=== PATIENT | male | born 1955 | race Caucasian/White ===

== ENCOUNTER 2021-06-14 13:56 | Inpatient (IN) | payer MEDICARE ==
[~2021-06-14] VITALS: Ht 198.1 cm; Wt 127.9 kg
[2021-06-14] MEDS ORDERED: ACIDOPHILUS1 EACH PO (15:10)
[2021-06-14] MEDS ORDERED: CYANOCOBAL1000 MCG/M IM (15:11)
[2021-06-14] MEDS ORDERED: D3-501250 MCG PO (15:11)
[2021-06-14] MEDS ORDERED: AMLODIPINE-OLM1 EAC1 PO (15:11)
[2021-06-14] MEDS ORDERED: DONEPEZIL HCL5 M1 PO (15:12)
[2021-06-14] MEDS ORDERED: EFFEXOR XR150 MG PO (15:12)
[2021-06-14] MEDS ORDERED: PROSCAR5 MG PO (15:12)
[2021-06-14] MEDS ORDERED: LEVOTHYROXINE125 MC1 PO (15:13)
[2021-06-14] MEDS ORDERED: NORTRIPTYLINE H25 MG PO (15:13)
[2021-06-14] MEDS ORDERED: FLOMAX0.4 MG PO (15:13)
[2021-06-14] MEDS ORDERED: HYDROCHLOROTH12.5 M1 PO (15:13)
[2021-06-14] MEDS ORDERED: PREDNISONE20 MG PO (15:13)
[2021-06-14] MEDS ORDERED: SPIRIVA18 MCG INH (15:14)
[2021-06-14] MEDS ORDERED: SIMETHICONE80 MG PO (15:14)
[2021-06-14] MEDS ORDERED: ELIQUIS5 MG PO (15:14)
[2021-06-14] MEDS ORDERED: SYMBICORT 16010.2 GM INH (15:14)
[2021-06-14] MEDS ORDERED: DEPAKOTE125 MG PO (15:14)
[2021-06-14] MEDS ORDERED: K-TAB ER20 MEQ PO (15:14)
[2021-06-14] MEDS ORDERED: LYRICA50 MG PO (15:14)
[2021-06-14] MEDS ORDERED: VENTOLIN HFA18 GM INH (15:15)
[2021-06-14] MEDS ORDERED: PAIN RELIEF650 MG PO (15:15)
[2021-06-14] MEDS ORDERED: POLYETHYLENE GL17 GM PO (15:16)
[2021-06-14] MEDS ORDERED: DULCOLAX STOOL100 M1 PO (15:16)
[2021-06-14] MEDS ORDERED: FLEET ENEMA133 ML PR (15:16)
[2021-06-14] MEDS ORDERED: MILK OF MA400 MG/5 M PO (15:16)
[2021-06-14] MEDS ORDERED: ULTRAM50 MG PO (15:17)
[2021-06-14] MEDS ORDERED: GAS RELIEF80 MG PO (15:17)
--- NOTE | 2021-06-14 20:37 | NUR ---
PATIENT ARRIVED TO THE FLOOR VIA STRETCHER. PATIENT TRANSFERED FROM STRETCHER TO HOSPITAL BED BY STAFF. PATIENT ALON SAMANTA MAURO LWROMEO. PRESNET IN THE ROOM AND ASSISTED IN PATIENTS HEALTH HISTORY. PATIENT HAS IV INFUSING PER ORDER. ALL QUESTIONS ANSWERED. RT IN THE ROOM.
--- NOTE | 2021-06-14 21:15 | NUR ---
RIGHT NARE NGT TO ILCS. DRAINING BROWN COLORED DRAINAGE. HOB ELEVATED. NPO. CHRONIC O2 2L NC AT HOME. LUNGS RGHT SIDE FAINT CRACKLES AUSCULTATED. ABD LARGE TENDER, DISTENDED. F/C CHRONIC PATENT, DRAINING LIGHT RENATO COLORED URINE. IV RAC INFUSING W/O PROBLEMS, HEEL PROTECTORS IN PLACE. ALL PROCEDURES EXPLAINED TO PT AND . PT COOP.
--- NOTE | 2021-06-14 22:28 | NUR ---
soap sads enema given with pt laying on his left side. Able to inert approx 100cc. tub plugged with hard bm. second enema bucket. able to insert about 100cc soapy suds water enema more and large amount of rectal gas came out. tip of enema tubing plugged with hard bm again, unable to dislodge. Had medium amount of liquid bm. Abd large distended, no changes noted. procedure explained, pt cooperative. NGT patent. noted to have very stiff legs. f/c patent. inroom
--- NOTE | 2021-06-15 00:06 | NUR ---
AWAKES EASILY, ngt TO liws DRAINING SMALL AMOUNT OF BROWN, THICK DRAINAGE. COOPERATIVE, PROCEDURE EXPLAINED, ATTENDS DRY, NO FURTHER BM, F/C PATENT, DRAINING LIGHT RENATO COLORED URINE, REPOSITIONED IN BED. HEEL PROTECTORS IN PLACE NPO, MOUTH CARE DONE
--- NOTE | 2021-06-15 02:16 | NUR ---
RESTING, NO DISTRESS. NGT PATENT, O2 2L CHRONIC, ABD DISTENDED. FIRM, F/C PATENT DRAINING LIGHT RENATO COLORED URINE, HEEL PROTECTORS INPLACE
--- NOTE | 2021-06-15 03:01 | NUR ---
ATTENDS DRY, NO BM, TURNED TOWARDS LEFT SIDE, HOB ELEVCATED, NGT PATENT TO ILWS, SMALL AMOUNT OF BROWN DRAINAGE. ABD LESS DISTENDED, STILL FIRM AND TENDER, FAINT GOLDIE. F/C PATENT. HEEL PROTECTORS IN PLACE, IVF INFUSING. MOUTH CARE DONE, FAMILY IN ROOM
[2021-06-15] MEDS ORDERED: VITAMIN D325 MCG PO (08:55)
[2021-06-15] MEDS ORDERED: B-121000 MC2 PO (08:56)
[2021-06-15] MEDS ORDERED: HYDROCHLOROTH12.5 MG PO (09:09)
[2021-06-15] MEDS ORDERED: SYNTHROID125 MCG PO (09:11)
--- NOTE | 2021-06-15 09:15 | NUR ---
IN TO ROOM TO SPEAK WITH PATIENT AND HIS ANDI. PATIENT ABLE TO PROVIDE INFORMATION FOR CASE MANAGEMENT ASSESSMENT. ANDI STATES THAT PATIENT HAD PREVIOUSLY BEEN PLACED AT [facility], BUT STATES SHE FEELS THAT THEIR CARE WAS QUESTIONABLE. AT THIS TIME PATIENT RESIDES AT [facility] FOR PT. ANDI STATES THAT SHE HAS BEEN ATTEMPTING TO CONTACT [facility] REGARDING PATIENTS CARE PLAN, BUT HAS NOT RECVD A CALL BACK. I ADVISED THE PATIENT AND HIS THAT I WILL ATTEMPT TO CONTACT T TO OBTAIN THE PATIENT CURRENT PLAN OF CARE. DISCUSSED WITH ANDI IF SHE WOULD LIKE PATIENT TO RETURN TO [facility] OR POSSIBLY DISCHARGE TO A DIFFERENT FACILITY. PATIENTS STATES THAT SHE WOULD CONSIDER PATIENT RETURNING TO [facility] IT IS LOCATED CLOSER TO HER. I ADVISED PATIENT AND HIS THAT I WOULD CONTACT [facility] TO ATTEMPT TO GATHER INFORMATION REGARDING HIS CARE PLAN. DR. MARTINEZ INTO ROOM, PATIENT TO GO FOR COLONOSCOPY LATER THIS AFTERNOON. WILL CONTINUE WORKING ON DISCHARGE PLAN FURTHER INFORMATION REGARDING THE PATIENT IS AVAILABLE.
[2021-06-15] MEDS ORDERED: SPIRIVA RESPIMAT4 GM INH (09:17)
[2021-06-15] MEDS ORDERED: SYMBICORT 16010.2 GM INH (09:20)
--- NOTE | 2021-06-15 09:23 | NUR ---
IN ROOM FOR MEDICATIONS AND DR ALFONSO IN TO EVALUATE. ABD XRAY COMPLETED. PT TEARFUL AND DOESN'T RECALL WHERE HE IS. GIVEN OFIRMEV FOR THROAT PAIN.
[2021-06-15] MEDS ORDERED: PAIN RELIEF325 MG PO (09:27)
[2021-06-15] MEDS ORDERED: DULCOLAX10 MG PR (09:30)
[2021-06-15] MEDS ORDERED: FLEET ENEMA133 ML PR (09:31)
[2021-06-15] MEDS ORDERED: MILK OF MA400 MG/5 M PO (09:32)
[2021-06-15] MEDS ORDERED: CLEARLAX119 GM PO (09:34)
--- NOTE | 2021-06-15 09:39 | NUR ---
MED REC COMPLETED USING MAR FROM [facility] BY PHARMACY
--- NOTE | 2021-06-15 10:52 | NUR ---
SPOKE WITH BERHANE AT [facility] REGARDING PATIENTS CURRENT CARE PLAN. BERHANE TO FAX OF PATIENT CARE PLAN. UPDATES GIVEN.
--- NOTE | 2021-06-15 12:11 | NUR ---
Patient's vitals are complete. Patient's is in room.
--- NOTE | 2021-06-15 12:50 | NUR ---
CHANGED OUT PICKETT CATHETER. PT TOLERATED WELL. EDUCATED ON KEEPING IT CLEAN ALTHOUGH HE HAS VERY SHORT TERM MEMORY. WILL SPEAK WITH WHEN SHE RETURNS. WAITING FOR ENOUGH URINE TO SEND FOR NEW SAMPLE. PT DENIES CONCERNS.
--- NOTE | 2021-06-15 14:45 | NUR ---
Patient said the plastic nose piece is irritating to the nose.
--- NOTE | 2021-06-15 15:49 | NUR ---
LIDIA FOR PATIENT RECORDS SIGNED BY PATIENT AND SENT TO [facility] PER FACILITIES REQUEST. WILL GIVE PLAN OF CARE TO PATIENT ANDI WHEN RECVD.
--- NOTE | 2021-06-15 17:32 | NUR ---
ADMINISTERED OFIRMEV FOR THROAT PAIN AND MILD HEARTBURN. BOWEL TONES ARE HYPO TO INACTIVE. LUNGS CLEAR. HR REGULAR. APPEARS MORE DISTENDED BUT PT STATES HE FEELS OK. IN ROOM.
--- NOTE | 2021-06-15 18:03 | NUR ---
PT OFF FLOOR WITH RNS PATIENCE AND MARIA R FOR DECOMPRESSION OF COLON. NG UNHOOKED.
--- NOTE | 2021-06-15 18:59 | NUR ---
06/15/[id number] Sadie Morton 185: PT ARRIVES TO PACU VIA STRETCHER FROM OR. OPA IN PLACE. NON AROUSABLE TO VERBAL OR TACTILE STIM. VSS, RESP EVEN AND UNLABORED. O2 SAT STABLE >98% ON 10L VIA FACEMASK. NO INFILTRATION NOTED TO IV AT THIS TIME
--- NOTE | 2021-06-15 19:26 | NUR ---
RECEIVED REPORT FROM DAY SHIFT RN. PATIENT IS OFF THE FLOOR AT THIS TIME. PRESENT IN ROOM. NO NEEDS NOTED.
--- NOTE | 2021-06-15 19:58 | NUR ---
PATIENT ARRIVED TO THE FLOOR VIA STRETCHER. PATIENT MOVED FROM STRETCHER TO THE BED BY STAFF. NG TO LWIS. IV INFUSING PER ORDER. PATIENT DENIES ANY PAIN. JUAN IN TO SEE PATIENTS . PATIENTS VITALS TAKEN AND RECORDED. PATIENT DENIES ANY NEEDS. CALL LIGHT IN REACH. REMAINS AT BEDISDE.
--- NOTE | 2021-06-15 21:01 | NUR ---
PATIENT ASSESMENT COMPLETED. PATIENTS VITALS TAKEN AND RECORDED. PATIENTS PICKETT EMPTIED AND PICKETT CARE COMPLETED. INTAKE AND OUTPUT COMPLETED. ORAL CARE COMPLETED. PATIENT DENIES ANY PAIN. NG TO LWIS. PATIENTS PRESENT IN THE ROOM. SCHEDULED MEDICATION GIVEN PER ORDER. PATIENT AND DENY ANY NEEDS. CALL LIGHT IN REACH.
--- NOTE | 2021-06-15 22:02 | NUR ---
PATIENTS POST-OP VITALS TAKEN AND RECORDED. PATIENT DENIES ANY NEEDS. CALL LIGHT IN REACH. ASLEEP ON THE COUCH.
--- NOTE | 2021-06-15 23:25 | NUR ---
LAST POST OP VITALS COMPLETED. PATIENT REPOSITIONED IN BED. NG TO LWIS. 2L VIA NC. IV INFUSING PER ORDER. PATIENT DENIES ANY NEEDS. CALL LIGHT IN REACH.
--- NOTE | 2021-06-16 | NUR ---
PATIENT IS RESTING IN BED. NG FOUND TO DISPLACED. NG REPLACED, STOMACH CONTENTS NOTED IN TUBE. NG BACK TO LWIS. PATIENT TOLERATED ACTIVITY WELL. REPOSITIONED PATIENT. PATIENT DENIES ANY NEEDS. CALL LIGHT IN REACH.
--- NOTE | 2021-06-16 03:03 | NUR ---
PATIENT REPOSITIONED. PATIENT NG LWIS. NEW IV STARTED AND IV INFUSING PER ORDER. PATIENT DENIES ANY NEEDS. CALL LIGHT IN REACH.
--- NOTE | 2021-06-16 04:20 | NUR ---
PATIENT IS RESTING IN BED. PATIENT REPOSITIONED. PATIENTS NG TO LWIS. IV INFUSING PER ORDER. PATIENT DENIES ANY PAIN. NO NEEDS NOTED. CALL LIGHT IN REACH.
--- NOTE | 2021-06-16 05:37 | NUR ---
PATIENTS SCHEDULED MEDICATIONS GIVEN PER ORDER. PATIENT REPOSITIONED IN BED. PATIENT HAS NG TO LWIS. IV INFUSING PER ORDER. PATIENT DENIES ANY PAIN. PATIENT REMAINS ON 2L VIA NC. PATIENTS PICKETT EMPTIED. VITALS TAKEN AND RECORDED. INTAKE AND OUTPUT RECORDED. NO NEEDS NOTED. ASLEEP ON COUCH. CALL LIGHT IN REACH.
--- NOTE | 2021-06-16 06:54 | NUR ---
PATIENT IS RESTING IN BED WITH EYES CLOSED, RR 16. NG TO LWIS. IV INFUSING PER ORDER. ASLEEP ON THE COUCH. CALL LIGHT IN REACH.
--- NOTE | 2021-06-16 09:17 | NUR ---
Tylenol 1000mg ivp admin for reports of generalized discomfort. requesting patient have tylenol at this time.
--- NOTE | 2021-06-16 09:25 | NUR ---
Verbal order obtained from Dr. Griffin to remove NG and advance patient's diet to clears. NG removed at this time, pt tolerated well. Jello and water provided.
--- NOTE | 2021-06-16 10:30 | NUR ---
Lengthy converstation with pts Cristal. would like pt moved to [facility] on discharge. She further states pt has run out of SNF days and they are attempting to get [place] Medicaid and [facility] is assisting her. Pt was in [facility] and they were not happy with their care, she moved pt to [facility]. She is not that happy with [facility]. We discussed pt needs to return to [facility] on discharge and they can assist her with a return to [facility]. She is concerned as the roads are getting slick and is not sure how she will visit to [place] from [facility]. I also cautioned her to speak with [facility] to confirm if he is transfered she won't have to restart the process for medicaid. I let her know this is a 45 day process and she was not aware of this. I gave her Zahida Navarro phone number at [facility] and asked her to call her with questions. She states she has called [facility] and they have not returned her calls as well as [facility]. I reminded her this is a holiday week and she may not receive calls until next week. Pt was listed from admitting as no pcp, but pts pcp is Vicki Burnette at [facility] [phone]. I also discussed with Cristal a concern from our 829 meeting where it was stated the POLST was filled out by the daughter with the patient and the was not in agreement. Cristal states she was not happy with this as pt was made a DNR/DNI. The daughter is not Cristal's daughter and is Ugo's daughter. The POLST was completed with the patients wishes and she states he has stated several times he wants to be DNR so it was left as signed by the patient. would like to complete FMLA papers and gave her our fax number for her work to fax to us. She asked if we could return fax and I let her know I would be happy to fax for her.
--- NOTE | 2021-06-16 12:32 | NUR ---
Received a call from pts PCP and she is requesting progress notes. H&P and progress notes sent to fax.
--- NOTE | 2021-06-16 12:54 | NUR ---
Patient resting in bed, no distress. Patient is on room air, respirations even and non labored. Patient denies nausea at this time. IV site patent. Hob elevated. Patient has no current needs.
--- NOTE | 2021-06-16 13:40 | NUR ---
RT IN CARING FOR PT. WILL CHECK BACK AGAIN LATER
--- NOTE | 2021-06-16 14:37 | NUR ---
Received call from Cristal. She has spoken with Oswaldo from [place] and he told her to go ahead and have us move pt to [facility]. Discussed with Oswaldo cannot just tell us to do this. [facility] would need to have a bed and also be willing to accept him. She asks if I can call and see if there is a bed. I said I would, but pt will need to return to [place] as his 20 days have been exhausted and I doubt very much [facility] will accept him. Called and spoke with Meka at [facility]. She states pt needs to return to [facility] and can call them after he has returned to [place]. was not happy with their care and this would need to be discussed as well as Medicare 20 days has been completed.
--- NOTE | 2021-06-16 15:02 | NUR ---
Patient resting in bed visiting with . Patient denies pain and nausea. Patient declined to get up in chair at this time. Encouraged patient to call staff if he has needs.
--- NOTE | 2021-06-16 15:25 | NUR ---
Received call from Sonal at [facility]. She states called and spoke with their [place] Treater and they would like to send him to [facility]. Informed this will not work as [facility] is not willing to accept this pt. He will need to return to [place] on discharge and they can assist him to discharge whereever the family would like.
--- NOTE | 2021-06-16 15:45 | NUR ---
Approached by pts RN and she asks if I am aware plans on pt going to [facility]. Updated pt must return to [facility] as this is a safe discharge plan and [facility] is not accepting this patients. He does not have a bed in [facility].
--- NOTE | 2021-06-16 16:03 | NUR ---
PT HAS AN "UPSET STOMACH" CAROLYN CARRERA NOTIFIED. THIS [employer]ET[employer] SPECIALIST AND CAROLYN CHEUNGWNA IN TO OFFER BED BATH AND LINEN CHANGE WELL BED ALVARADO. PT REFUSED ALL CARE. CALL LIGHT WITHIN REACH. NO FURTHER NEEDS AT THIS TIME.
--- NOTE | 2021-06-16 16:11 | NUR ---
Patient resting in bed visiting with . Patient reports his stomach has been cramping intermittently today. Education provided regarding medications in use to premote bowel motility. Patient declining need to have a bowel movement as of yet this shift. Warm pack provided to patient to place over his lower abdomen per his request. Discussed plan of care and medication scheduling with patient and . Patient and receptive to plan of care. Patient declined a bed bath. Patient has poor po intake today, he reports he does not like the jello, popsickles or the broth here. has brought in chicken noodle soup to bedside in which she would like strained, as pt desires. Encouraged patient and to call if there are any needs. Call light withn reach.
--- NOTE | 2021-06-16 18:18 | NUR ---
PATIENT REPOSITIONED IN BED WITH PILLOWS UNDER RIGHT SIDE. IN ROOM. VITALS AND I&O'S CHARTED. CALL LIGHT IN REACH. NO FURTHER NEEDS AT THIS TIME.
--- NOTE | 2021-06-16 18:25 | NUR ---
Patient repositioned to left lateral side with pillows. Patient reports his stomach is feeling better. clear liquid soup provided to patient. remains at bedside. No current needs. Personal supplies and call light within reach.
--- NOTE | 2021-06-16 19:26 | NUR ---
RECEIVED REPORT FROM DAY SHIFT RN. PATIENT IS RESTING IN BED. PATENTS AT THE BEDSIDE. THEY DENY ANY NEEDS. CALL LIGHT IN REACH.
--- NOTE | 2021-06-16 20:55 | NUR ---
PATIENT ASSESMENT COMPLETED. VITALS TAKEN AND RECORDED PICKETT EMPTIED AND PICKETT CARE COMPLETED. PATIENT REPOSITIONED IN BED. PATIENT DENIES ANY PAIN OR NAUSEA. SCHEDULED MEDICATIONS GIVEN PER ORDER. SIPS OF WATER PROVIDED. IF INFUSING PER ORDER. PATIENT DENIES ANY NEEDS. ASLEEP ON THE COUCH. CALL LIGHT IN REACH.
--- NOTE | 2021-06-16 22:19 | NUR ---
PATIENT IS RESTING IN BED WITH EYES CLSOED, RR 16. CALL LIGHT IN REACH.
--- NOTE | 2021-06-16 23:57 | NUR ---
PATIENT REPOSITIONED IN BED. PATIENT DENIES ANY NEEDS. PATIENTS ASLEEP ON THE COUCH. CALL LIGHT IN REACH.
--- NOTE | 2021-06-17 02:00 | NUR ---
SCHEDULED MEDICATION GIVEN PER ORDER. IV INFUSING PER ORDER. PATIENTS ABD HAS INCREASED IN DISTENTION. PATIENT REPOSITIONED TO BE HIGH ON HIS LEFT SIDE. PATIENT TOLERATED ACITVITY WELL. PATIENT DENIES ANY PAIN. PATIENT PROVIDED WITH SIPS OF WATER. CALL LIGHT IN REACH.
--- NOTE | 2021-06-17 03:51 | NUR ---
PATIENT IS RESTING IN BED WITH EYES CLSOED, RR 18. CALL LIGHT IN REACH.
--- NOTE | 2021-06-17 05:59 | NUR ---
3 PA CLEANED UP PATIENT FROM HAVING LOOSE BOWEL MOVEMENT.
--- NOTE | 2021-06-17 06:02 | NUR ---
PATIENT WAS IN CONTINENT OF STOOL. PATIENT HAD LARGE LOOSE BM. PATIENTS VITALS TAKEN AND RECORDED. PICKETT EMPTIED AND PICKETT CARE COMPLETED. PATIENT DENIES ANY PAIN. PATIENTS SCHEDULED MEDICATION GIVEN PER ORDER. PATIENT DENIES ANY NEEDS. CALL LIGHT IN REACH. ASLEP ON COUCH.
--- NOTE | 2021-06-17 06:43 | NUR ---
PATIENT ASSISTED A 2PA W/FWW. PATIENT WAS ABLE TO PIVOT TRANSFER W/FWW. PATIENT REQUIRED MINIMAL ASSISTANCE. PATIENT IS NOW UP IN RECLINER. IS PRESENT IN THE ROOM. PATIENT ANS DENY ANY NEEDS. CALL LIGHT IN REACH.
--- NOTE | 2021-06-17 07:05 | NUR ---
Report received from Joby LEON. Pt sitting up in chair, at bedside. Discussed care plan extensively, goals for discharge. Pt has no needs at this time, will continue POC
--- NOTE | 2021-06-17 07:56 | NUR ---
Call light answered, patient requests to move back to bed from chair. 2PA with FWW, gait belt. Pt steady, shuffling gait. Noted cloudy urine in reddy, draining WNL, devulcanizer charger in room and aware. Pt states feeling "weak and tired this morning" after ambulation to and from chair. Allowed to rest at this time, no further needs
--- NOTE | 2021-06-17 08:49 | NUR ---
Scheduled medications administered, assessment complete. Pt resting in bed, alert and oriented. States no pain, nausea. IVF infusing WNL. Bowel sounds active. Lungs clear, HRR. Pt states chronic neuropathy in feet, trace edema noted in extremities. Pt in good spirits and "looking forward" to working with therapies today. at bedside and engaged in care. Call light in reach
--- NOTE | 2021-06-17 09:55 | NUR ---
Pt working with physical therapy, drowsy and repeatedly falls asleep while sitting, awakens to voice, touch and is able to stand with walker, 2PA and gait belt for 1 minute and perform a few small side steps before sitting down. VSS. at bedside, PT remains with patient
--- NOTE | 2021-06-17 10:40 | NUR ---
Spoke with pt and his , Cristal. Both are tearful today.Pt was able to pivot transfer with staff and this is new as pt has been bed bound. cont. to work with [facility] for medicaid and forwarded email to me as she does not have access to a hay in [place]. Printed [facility] paper work and gave to . She was able to call Zahida Gardner at [facility] yesterday and was able to receive information. She stated Zahida was very helpful. Pt and spouse plan on return to [place] until he can receive medicaid, the possible return to [facility].
--- NOTE | 2021-06-17 11:49 | NUR ---
Urine sample collected and sent to lab. RT in room to provide neb tx. Soda provided per pt request.
--- NOTE | 2021-06-17 13:20 | NUR ---
OT TESS IN WORKING WITH PT. WILL RETURN AGAIN
--- NOTE | 2021-06-17 14:31 | PATH ---
[facility] [address] [place], [place] [address] Signed SPECIMEN(S): A ASCENDING/RIGHT COLON BIOPSY SPECIMEN SOURCE: A. 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 Postop: Inflammation of colon wall. MICROSCOPIC DESCRIPTION: Histologic sections of all submitted blocks are examined by light microscopy. These findings, together with the gross examination, support the pathologic diagnosis. FINAL PATHOLOGIC DIAGNOSIS: Colon, ascending/right, biopsy: - Colonic mucosa with active colitis and ulceration. - Negative for dysplasia, granulomas, or viral cytopathic change. BRP:cml:C2NR GROSS DESCRIPTION: The specimen, labeled "RD, 1," and designated on the requisition "ascending/right biopsy," is received in formalin and consists of two fragments of pink-guerrero tissue (0.2-0.3 cm in greatest dimension). The specimen is submitted entirely in cassette (A1). AC (under the direct supervision of a pathologist) The Gross Description was prepared using a voice recognition system. The report was reviewed for accuracy; however, sound-alike word errors, addition and/or deletions may occur. If there is any question about this report, please contact Client Services. PERFORMING LABORATORY: The technical component was performed by [facility], [address] [place] [id number] (Lever Tender: Stephanie Cowart MD; CLIA# [id number]). Professional interpretation was performed by [facility], [address] [address] (CLIA# [id number]). Diagnostician: Joel Rhodes MD Pathologist Electronically Signed 06/17/2021 PATIENT NAME: KATTY GUZMAN PATHOLOGY DATE OF : 59 REPORT #: [id number] PHYSICIAN: [facility] PCP: NO PRIMARY CARE PHYSICIAN REPORT IS CONFIDENTIAL AND NOT TO BE RELEASED WITHOUT AUTHORIZATION [address] [address] Signed Copies: ~ PATIENT NAME: KATTY GUZMAN PATHOLOGY DATE OF : 59 REPORT #: [id number] PHYSICIAN: [facility] PCP: NO PRIMARY CARE PHYSICIAN REPORT IS CONFIDENTIAL AND NOT TO BE RELEASED WITHOUT AUTHORIZATION
--- NOTE | 2021-06-17 15:40 | NUR ---
Scheduled medication administered, pt resting in bed with eyes closed, awakens to voice. at bedside, discussed lab results and plan of care, agreeable to all and all questions answered. RT in room to provide neb tx
--- NOTE | 2021-06-17 21:35 | NUR ---
ANSWERS APPROPRIATELY, ON ROOM AIR, FINE CRACKLES R BASE, OCCASSIONAL DRY COUGH, RED CONJUCTIVA, NO DRAINAGE. ABD LARGE DISTENDED UPPER ABD. GOLDIE. F/C CHRONIC DRAINING DARK YELLOW URINE, F/C CARE DONE. TRACE EDEMA TO HANDS, IVF INFUSING, 1+EDEMA LE, TURNED AND RESPOSITIONED TO L SIDE. PROCEDURE EXPLAINED, COOPERATIVE, NO C/O PAIN, NO EMESIS. TOLERATIANG FLUIDS, CALL LIGHT AT HANDS REACH. IN ROOM
--- NOTE | 2021-06-17 22:39 | NUR ---
resting, hob elevated, on room air. ivf infusing, f/c patent. call light at hands reach, no s/sx pain. rooming in
--- NOTE | 2021-06-18 01:58 | NUR ---
hob elevated, resting, no distress, on room air, f/c patent, ivf infusing
--- NOTE | 2021-06-18 03:02 | NUR ---
Resting, hob elevated, on room air, no distress, f/c patent, call light and fluids at hands reach, turned earlier.
--- NOTE | 2021-06-18 06:13 | NUR ---
Pt has slept most of this shift, on room air, dim lungs at bases, occassional dry cough, non productive. IS at bedside. Upper abd disatended, firmer than lower abd, GOLDIE, no bm this shift, passes rectal gas and had smear of bm when turned to left side. f/c draining large amounts of yellow urine, generalized edema to LE and hands present, LE elevated. IVf infusing RFA, patent. Has denies c/o pain. tolerating clear liquid well no emesis, wide at bedside. Forgetful, easily reoriented, all procedure explained, helped with repositoning.
--- NOTE | 2021-06-18 12:05 | NUR ---
RN in to round on patient, water refreshed no other needs at the moment,
--- NOTE | 2021-06-18 15:04 | NUR ---
RN IN ROOM TO ADMINISTER AFTERNOON MEDS PATIENT RESTING IN BBED WACTHING TV DENIES ANY NEEDS AT THE MOMENT
--- NOTE | 2021-06-18 18:00 | NUR ---
RN IN ROOM TO ROUND ON PATIENT WACTHING TV IN BED NO RESULTS FROM SUPPOSITORY OR MAG CITRATE CONTINUE TO MONITOR, ATE DINNER AND JASE;ERATED SOLIDS NO OTHER NEEDS
--- NOTE | 2021-06-18 19:48 | NUR ---
meds given at this time at pt and 's requests "Marlon ready for bed, Marlon really tired" pt stated. received second dose of 150mg of Mag Citrate. On room air, lungs clear bilat. abd large distended upper abd, HEA. no bm yet. f/c patent, draining qs yellow urine. IVF infusing RFA. received po abx, med teaghing done, staed understansind. helped with repositioning in bed. tolerating liquids well, on soft diet now, no emesis. in room. will check in one hour and every 2 hours afterwards for resualts of mag citrate, pt to be turned, stated understanding.
--- NOTE | 2021-06-18 22:49 | NUR ---
AWAKES EASIY, ATTENDS DRY, NO BM, UPPER ABD STILL DISTENDED, NO C/O PAIN F/C PATENT. TOLERATING FLUIDS WELL, IVF INFUSING. TURNED TO LEFT SIDE
--- NOTE | 2021-06-19 00:04 | NUR ---
AWAKES EASILY, ON ROOM AIR, IVF INFUSING W/O PROBLEMS, GENERALIZED EDEMA ALL EXTREMITIES W/O CHANGES.UPPER ABD STILL VERY DISTENDED, FIRM, NO BM, NO RESULTS FROM MAG CITRATE, VERY HYPERACTIVE BOWEL TONES. F/C PATEN. ATTENDS IN PLACE. TURNED AND REPOSITIONED ON R SIDE, COOPERATIVE, TOLERATED WELL, NO C/O PAIN. 2PA. ROOMING IN
--- NOTE | 2021-06-19 02:00 | NUR ---
TURNED TO HIS BACK, COOPERATIVE, NO BM.F/C PATENT, IVF INFUSING. ON ROOM AIR
--- NOTE | 2021-06-19 03:59 | NUR ---
tURNED TO LRFT LEFT SIDE, COOPERATIVE, ON ROOM AIR, NO BM, UPPER ABD STILL DISTENDED HEA. F/C PATENT. LEGS ELEVATED. IVF INFUSING, CALL LIGHT AT HANDS REACH. IN ROOM
--- NOTE | 2021-06-19 06:01 | NUR ---
PT HAS SLEPT, ON ROOM AIR, LUNGS CLEAR, UPPER ABD CONTINUES TO BE VERY DISTENDED AND FIRM, LOWER ABD SOFT, HEA. RECEIVED 150MG MAG CITRATE WITH NO RESULTS THIS SHIFT. TURNED AND REPOSITIONED EVERY TWO HOURS, SMALL AMOUNT OF RECTAL GAS HEARD THIS AM. F/C PATENT, DRAINING LARGE AMOUNTS OF DARK YELLOW URINE. MARZENA CARE DONE. GENERALIZED EDEMA TO EXTREMITIES W/O CHANGES. IVF INFUSING W/O PROBLEMS, HAS NOT C/O PAIN. PLEASANTLY FORGETFUL, COOPERATIVE. ALL PROCEDURES EXPLAINED. TOLERATING SOFT DIET AND FLUIDS W/O PROBLEMS, FALL AND ASPIRATION PRECAUTIONS IN PLACE. AT BEDSIDE.
--- NOTE | 2021-06-19 06:30 | NUR ---
awakes easily, cooperative, repositioned to his back, no bm. upper abd softer, still distended. legs elevated. hob elevated. on room air
--- NOTE | 2021-06-19 07:26 | NUR ---
pt stated that he feels like throwing up. hob elevated. upper abd still distended. dr moran notified of above, new order to give zofran 4mg iv [id number] n/v obtained.
--- NOTE | 2021-06-19 07:33 | NUR ---
report recieved from negative turner rn, patient is complaining of nausea DR Griffin called by night nurse order for zofran, IV zofran given to patient, no BM over night, denies any other needsa at the moment continue to monitor .
--- NOTE | 2021-06-19 08:52 | NUR ---
RN in room to administer morning meds, patient states his nausea is better only took a few bites of his breakfast, able to tolerate taking oral medications, denies any other needs at the moment.
--- NOTE | 2021-06-19 10:06 | HP ---
[facility] [address], [place] [address] Signed ADMISSION DATE: 06/14/2021 REASON FOR ADMISSION: Keya syndrome (pseudo-obstruction of colon). HISTORY: This 66-year-old white man has resided for the past two weeks at [facility]. He has dementia and a number of other medical problems. He is accompanied by his ; they normally live in [place]. She came over yesterday and has been with him today as well). The patient was thought to be distended by his and was not tolerating oral intake well and presented to the emergency room where he was evaluated by Dr. Ramos. Clinical examination showed a non toxic white man who is well compensated regarding his dementia. A POLST form describes him to have "comfort measures only." Nevertheless, his did ask that thorough evaluation to be undertaken mindful to keep comfort measures as his primary goal of treatment. The patient was transferred to the hospital by paramedics with increased abdominal pain however and abdominal swelling and considered to have tenderness. He currently is not complaining too much of pain. In addition to his rather significant dementia, he has had variable abdominal complaints over time according to his . Indeed, he was seen in [place] greater than two weeks ago and considered to have "colitis."; He did not have a colonoscopy according to his and I do not have other information than that. His evaluation in the emergency room included lab studies, which showed a normal white count of 5.3 and a hematocrit of 46.6. Electrolytes normal including a calcium of 8.7, and a CT scan of the abdomen, which showed diffuse distention of the colon measuring up to 11 cm in diameter, but no significant suggestion of volvulus and no evidence of neoplasm. The rectal exam was performed by Dr. Ramos in the emergency room showing no sign of stool or neoplasm. Artifact from hip prosthesis made pelvic evaluation less accurate. The patient has had a deep venous thrombosis in the past. He also had spinal surgery which resulted in cauda equina syndrome related either from clot or from bleeding. His describes that he may have an underlying coagulopathy (thrombophilia), but she is not sure just what that is. Electronically Signed By: HARISH MARTINEZ MD 06/19/21 1006 PATIENT NAME: KATTY GUZMAN HISTORY AND PHYSICAL DATE OF : 59 REPORT #: [id number] PHYSICIAN: HARISH MARTINEZ MD PCP: MARGIE WAGGONER DO REPORT IS CONFIDENTIAL AND NOT TO BE RELEASED WITHOUT AUTHORIZATION [facility] [address], [place] [address] Signed CURRENT MEDICATIONS: Of significance include amlodipine, donepezil, Effexor, Proscar, Flomax, hydrochlorothiazide, Synthroid, nortriptyline, prednisone 20 mg daily, Spiriva, budesonide, Symbicort inhaler, Depakote Eliquis 5 mg p.o. b.i.d., last dose earlier today, potassium chloride, Lyrica, simethicone, Tylenol for pain, albuterol, Ventolin inhaler, milk of magnesia, Fleet enema as necessary and MiraLAX on a daily basis as well as simethicone and tramadol. SURGICAL HISTORY: Includes bilateral hip replacement as previously noted. There is no prior abdominal surgical history that is aware of and the patient is unable to provide reliable history in that regard. He is said to have ulcerative colitis, though this is established from that diagnosis is quite unknown to me. He is certainly not on any medications for that I am aware of. The indication for prednisone use, however, may be in someway tied to that it is not clear to me at this time. ALLERGIES: Notably, he has no known allergies. 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 He is debilitated now due to his dementia. In discussing with him about dementia, he says he has "mild dementia." Unfortunately cannot remember anything regarding his prior work history or even his social situation, which justifies to the level of dementia certainly greater than the patient's own insight. REVIEW OF SYSTEMS: He denies any chest pain or shortness of breath. He has had no nausea or vomiting according to the patient and to his . He had previous abdominal pain which is not as much now. PHYSICAL EXAMINATION: GENERAL: A relatively tall white man with a calm and deliberate demeanor. VITAL SIGNS: Temperature is 97.2, pulse 86, respirations 16, blood pressure 135/100, pulse oximetry is 95%. NECK: Shows trachea to be midline. CHEST: Shows normal respiratory excursion. Pulses regular. I see no evidence of atrial fibrillation. ABDOMEN: Diffusely enlarged and rather enlarged indeed. Palpation throughout, does not reveal focal tenderness. There is only mild minimal tenderness if any and mostly in the left upper quadrant. EXTREMITIES: Show no clubbing, cyanosis, or edema. Electronically Signed By: HARISH MARTINEZ MD 06/19/21 1006 PATIENT NAME: KATTY GUZMAN HISTORY AND PHYSICAL DATE OF : 59 REPORT #: [id number] PHYSICIAN: HARISH MARTINEZ MD PCP: MARGIE WAGGONER DO REPORT IS CONFIDENTIAL AND NOT TO BE RELEASED WITHOUT AUTHORIZATION [facility] [address], [place] [address] Signed NEUROLOGIC: Shows he is alert and oriented with normal speech. There is no tremor. His memory is quite poor as previously noted. He is able to move upper and lower extremities. He has diminished sensation bilateral lower extremities. I have reviewed his CT scan in detail. Most demonstrative of his tissue is the coronal view, which shows diffuse distention of his colon without neoplastic abnormality or anything of that sort. There is stool noted in the right colon. I do not visualize the gallbladder on my review of images and I see no clips in the hilum on those views. I see no evidence of spinal neoplasm or anything of that sort. The stomach itself does not appear particularly distended, transverse colon quite markedly distended as is the left colon. ASSESSMENT: The patient has rather typical presentation for Keya syndrome (colonic pseudo obstruction). There are no electrolyte abnormalities that would contribute to this. In discussing his situation with his it sounds as though he has had issues of bowel dysfunction previously for which various cathartics have been employed. He does not have an acute abdomen and no clinical or radiographic evidence to suggest perforation at this time. His colonic distention is significant enough, however, that he is at increased risk of colonic perforation. Various approaches and management to [place] syndrome can be beneficial. He may be advised to have a nasogastric tube decompression initially and likely will require colonoscopic decompression. Withholding of his Eliquis would be appropriate though colonoscopy can be undertaken while on Eliquis to be sure. Some benefit from Fleet's enema may be expected if there is any distal stool that would preclude colonoscopic decompression of his Keya's problem. PLAN: Our plan at this point will be to administer IV fluids assess his progress, perform at least one or two enemas gently and if abdominal distention persists, consider for colonoscopic decompression tomorrow. I have discussed this in detail with his and the patient to the extent he can understand and wished to proceed in this approach. MD NOE Tsai/RENUKAL /[id number] cc: Dr. Ramos Electronically Signed By: HARISH MARTINEZ MD 06/19/21 1006 PATIENT NAME: KATTY GUZMAN HISTORY AND PHYSICAL DATE OF : 59 REPORT #: [id number] PHYSICIAN: HARISH MARTINEZ MD PCP: MARGIE WAGGONER DO REPORT IS CONFIDENTIAL AND NOT TO BE RELEASED WITHOUT AUTHORIZATION [facility] [address] [place] [address] [place] [address] Signed Copies: ~ Electronically Signed By: HARISH MARTINEZ MD 06/19/21 1006 PATIENT NAME: KATTY GUZMAN HISTORY AND PHYSICAL DATE OF : 59 REPORT #: [id number] PHYSICIAN: HARISH MARTINEZ MD PCP: MARGIE WAGGONER DO REPORT IS CONFIDENTIAL AND NOT TO BE RELEASED WITHOUT AUTHORIZATION
--- NOTE | 2021-06-19 10:06 | OR ---
[facility] [address], [place] [address] Signed DATE OF OPERATION: 06/15/2021 SURGEON: Harish Maritnez MD PREOPERATIVE DIAGNOSES: 1. Keya syndrome (colonic pseudo-obstruction). 2. Multiple medical problems including dementia. POSTOPERATIVE DIAGNOSES: 1. [place] syndrome (colonic pseudo-obstruction). 2. Multiple medical problems including dementia. 3. Inflammatory change of colonic mucosa without sign of ischemia. PROCEDURE: Decompressive colonoscopy with biopsy. ANESTHESIA: Intravenous sedation propofol infusion, Harish Padgett CRNA INDICATIONS: This 66-year-old white man was admitted by me after presentation to the emergency room on 06/14/2021 with abdominal distention. A CT scan finding showing massive distention of the colon with segments as high as 11 cm in diameter. The patient has had variable similar symptoms over time and has chronic constipation. His electrolytes have been normal. He does have underlying dementia and is in an extended care facility currently. He has numerous other medical problems as well and is chronically anticoagulated for a distant history of clotting. He has undergone nasogastric tube decompression. Abdominal KUB this morning still shows abdominal distention and colonic loop dilation and on that basis, I have recommended decompressive colonoscopy. The risk of bleeding, infection, and perforation were reviewed with the patient and importantly his . They understand and wished to proceed. FINDINGS: As there is typical stool that was gelatinous coated much of the entire colon, there was some solid stool on the right side, but not too much early. A prolonged experience of colonoscopy was undertaken allowing for irrigation and passage of the scope to the right colon. Biopsy was taken of the right colon, as underlying mucosa looked inflamed. There was a mysterious clinical diagnosis of ulcerative colitis made though he is not known to have had prior colonoscopy in [place] where he initially was evaluated. Decompression was undertaken as well as copious irrigation and clips were applied to Electronically Signed By: HARISH MARTINEZ MD 06/19/21 1006 PATIENT NAME: KATTY GUZMAN OPERATIVE REPORT DATE OF : 59 REPORT #: [id number] PHYSICIAN: HARISH MARTINEZ MD PCP: MARGIE WAGGONER DO REPORT IS CONFIDENTIAL AND NOT TO BE RELEASED WITHOUT AUTHORIZATION [facility] [address], [place] [address] Signed what was likely considered the right colon at the area of the biopsy. There was no nevin malignancy, certainly no sign of obstructive lesion. DESCRIPTION OF PROCEDURE: The patient was brought to the endoscopy suite and placed in lateral decubitus position, given intravenous sedation with propofol infusional technique. Preoperative antibiotic Ancef was given based on his prior history of bilateral joint replacement therapy of the hip. Digital rectal examination showed slimy nonformed stool and sphincter tone that was expected for age and debility. An Olympus video colonoscope was passed in the rectum and manipulated throughout the colon. Areas of somewhat liquid bowel movement were noted. Notably, he did undergo tap water enema last night. The scope was manipulated throughout the colon taking special care and caution in allowing for irrigation of areas as needed. Ultimately, the scope was passed to what was likely the right colon as there was more solid fecal material there. Irrigation was undertaken diluting this allowing for passage as far as possible. The underlying mucosa once irrigated and free showed a nodular pseudopolyp appearance for which biopsies were obtained. As the patient was anticoagulated with thrombin inhibitor and is only 24 hours since dosing as expected, some oozing was noted and therefore, two hemoclips were applied with good hemostatic effect. The scope was then withdrawn suctioning and irrigating but not applying any insufflation throughout. Consideration had been made for passage of a decompressive tube. However, it was deemed inadvisable and probably unsuccessful given the clinical findings at hand. Once complete colonoscopy was assured and decompression as much as possible done, the scope was removed. Of note, when the scope was in the right colon, abdominal wall palpation affirmed this as the likely position of the scope. The patient was taken to the recovery room in good condition without known complication. An abdominal KUB is anticipated. MD NOE Tsai/RENUKAL /[id number] cc: Dr. Ramos Electronically Signed By: HARISH MARTINEZ MD 06/19/21 1006 PATIENT NAME: KATTY GUZMAN OPERATIVE REPORT DATE OF : 59 REPORT #: [id number] PHYSICIAN: HARISH MARTINEZ MD PCP: MARGIE WAGGONER DO REPORT IS CONFIDENTIAL AND NOT TO BE RELEASED WITHOUT AUTHORIZATION [address] Mary Ellen Diggs Copies: ~ Electronically Signed By: HARISH MARTINEZ MD 06/19/21 1006 PATIENT NAME: MEGANKATTY OPERATIVE REPORT DATE OF : 59 REPORT #: [id number] PHYSICIAN: HARISH MARTINEZ MD PCP: MARGIE WAGGONER DO REPORT IS CONFIDENTIAL AND NOT TO BE RELEASED WITHOUT AUTHORIZATION
--- NOTE | 2021-06-19 10:41 | NUR ---
Patient can reach call light and ordered lunch. Patient said they he feels like he doesn't have much energy and has an upset stomach.
--- NOTE | 2021-06-19 10:54 | NUR ---
CALL MADE TO [facility] TO OBTAIN RECORDS FROM HOSPITALIZATIONS WITHIN THE PAST MONTH. RECORDS TO BE FAXED BY [employer] ATTENDANT.
--- NOTE | 2021-06-19 10:57 | NUR ---
UPDATED CLINICALS FAXED TO [facility].
--- NOTE | 2021-06-19 11:06 | NUR ---
PER AM MEETING AND CLINICALS PATIENT TO REMAIN ADMITTED AT THIS TIME. NO CHANGES IN CASE MANAGEMENT CARE PLAN AT THIS TIME. WILL CONTINUE TO FOLLOW UP WITH PATIENT AND ANDI.
--- NOTE | 2021-06-19 11:07 | NUR ---
RN IN ROOM TO ROUND ON PATIENT, PATIENT DENIES ANY NEEDS AT THE MOMENT. WAITING TO WORK WITH PT/OT, AT BEDSIDE.
--- NOTE | 2021-06-19 12:12 | NUR ---
P.T. IN WITH PT, UNABLE TO VISIT AT THIS TIME. WILL CHECK BACK
--- NOTE | 2021-06-19 12:21 | NUR ---
CALLED OUT SAYING PATIENT IS FALLING ASLEEP ON RECLINER AND WANTS HIM BACK IN BED, RN ENCOURAGING PATIENT TO STAY UP IN CHAIR A LITTLE WHILE LONGER SINCE HE HAS NOT BEEN DOING MUCH ACTIVITY LEGS ELEVATED AND PILLOW AND BLANKET PROVIDED, NO OTHER NEEDS AT THE MOMENT.
--- NOTE | 2021-06-19 13:36 | NUR ---
rn in room to adminsiter meds, patient remains in recliner offered to help back to bed if he would like, states he would like to sit up for a little longer, call light within reach no other needs at the moment
--- NOTE | 2021-06-19 14:52 | NUR ---
Patient's O2 was 89, RN will be notified. Patient is in chair with feet up and with call light in reach.
--- NOTE | 2021-06-19 15:12 | NUR ---
Patient's fingers were just cold before when taking O2. Patient's O2 is 95.
--- NOTE | 2021-06-19 17:17 | NUR ---
Patient is in chair and is in room. Patient tried the ensure but didn't like it so much. Patient ate all of their soup and said they weren't very hungry. Call light is in reach.
--- NOTE | 2021-06-19 18:16 | NUR ---
RN in room to assist patient back to bed. has been up in recliner most of the afternoon, 2 assist back to bed stand pivot with help of shailesh hinton RN, requires many cues, complete bed bath done whole line change, and hair shampoo, lotion applied to feet, bed alarm circulation director light within reach no other needs.
--- NOTE | 2021-06-19 19:30 | NUR ---
PATIENT REPORT RECEIVED BY THIS NURSE FROM CAROLYN CHAVEZ. PATIENT RESTING QUIETLY IN BED WATCHING TV WITH HIS AT BEDSIDE. PATIENT HAS NO CURRENT CARE NEEDS AT THIS TIME. CALL LIGHT IS IN REACH.
--- NOTE | 2021-06-19 20:12 | NUR ---
RESPITORY THERAPY JEET IS IN WITH PATIENT DOING NEBS AT THIS TIME. PATIENT'S ANDI IS ASLEEP ON THE COUCH. PATIENT HAS NO NURSING CARE NEEDS AT THIS TIME. CALL LIGHT IS IN REACH.
--- NOTE | 2021-06-19 21:15 | NUR ---
PATIENT AWAKE AND CONVERSIVE AND PATIENT'S ANDI IS AT BEDSIDE VISITING WITH PATIENT. VS ARE STABLE AND I+O COMPLETE. PATIENT'S BOWEL TONES ARE VERY HYPOACTIVE ALL 4 QUADS. PATIENT TOOK ALL PM MEDS WITHOUT DIFFICULTY AND NEW ICE WATER GIVEN. PICKETT DRAINING CLOUDY DARKER YELLOW URINE. PATIENT DENIES ANY OTHER CARE NEEDS AT THIS TIME. PRAYER SAID WITH PATIENT AND LIGHTS TURNED DOWN SO PATIENT CAN SLEEP. CALL LIGHT IS IN REACH.
--- NOTE | 2021-06-19 23:20 | NUR ---
PATIENT RESTING QUIETLY IN LOW FFOWLERS POSITION TURNED TO HIS LEFT SIDE, RESPIRATIONS ARE REGULAR AND EVEN, EYES ARE CLOSED, AND CALL LIGHT IS IN REACH. PATIENT'S SLEEPING BESIDE HIM IN THE BEDSIDE ARMCHAIR RECLINER. NO CURRENT CARE NEEDS NOTED.
--- NOTE | 2021-06-20 02:41 | NUR ---
PATIENT RESTING QUIETLY IN LOW FOWLERS POSITION, RESPIRATIONS ARE REGULAR AND EVEN, EYES ARE CLOSED, AND CALL LIGHT IS IN REACH. PATIENT'S IS AWAKE AND WORKING ON SOME PAPER WORK ON THE COUCH. NO CURRENT CARE NEEDS NOTED.
--- NOTE | 2021-06-20 04:00 | NUR ---
PATIENT CONTINUES TO REST QUIETLY IN LOW FOWLERS POSITION, EYES CLOSED, RESPIRATIONS ARE REGULAR AND EVEN, AND CALL LIGHT IS IN REACH. PATIENT'S IS ASLEEP ON THE COUCH.
--- NOTE | 2021-06-20 05:45 | NUR ---
IN TO GET VITALS WITH RN, PICKETT EMPTIED, TRASH EMPTIED
--- NOTE | 2021-06-20 05:50 | NUR ---
PATIENT SAYS HE HAS BEEN ABLE TO GET SOME SLEEP. LAB HERE GETTING LABS. AM ASSESSMENT COMPLETE AND VS ARE STABLE. PATIENT TOOK AM MEDS WITHOUT ANY DIFFICULTY. PATIENT HAD NO OTHER CARE NEEDS AT THIS TIME AND CALL LIGHT IS IN REACH. PATIENT'S REMAINS ON THE COUCH RESTING.
--- NOTE | 2021-06-20 07:10 | NUR ---
report recieved from comber setter rn, resting comfortable no bm overnight abdominal distention increasing. call light within reach no needs
--- NOTE | 2021-06-20 08:30 | NUR ---
CALL LIGHT ANSWERED. pt COMPLAINS OF DISCOMFORT. ABDOMEN DISTENDED, FIRM TO TOUCH, NOT PAINFUL WITH PALPATION. pt UNABLE TO STATE IF HE'S HAVING PAIN OR NAUSEA. PRIMARY RN NOTIFIED. PRN ZOFRAN ADMINISTERED. CALL LIGHT IN REACH. AT BEDSIDE. IVF INFUSING WNL.
--- NOTE | 2021-06-20 08:59 | NUR ---
RN INFORMED BY CHARGE NURSE PT COMPLAINING OF ABD DISCOMFORT AND NOT FEELING WELL, RN IN TO ASSESS PT PATIENT ABD DISTENDED, TENDER TO TOUCH AND BOWEL SOUNDS HYPOACTIVE, NO BM SINCE 06/18 DESPITE MEDS, DR MARTINEZ CALLED AND NOTIFED,VERBAL ORDER FOR KUB AND NPO STATUS FOR NO HOLD MORNING MEDS.
--- NOTE | 2021-06-20 12:15 | NUR ---
dr moran here to round on pt, at bedside and updated on plan of care, dr recomends repeat colonoscopy pt and verbalized understanding and signed consent
--- NOTE | 2021-06-20 12:45 | NUR ---
pt taken down to colonoscopy
--- NOTE | 2021-06-20 13:55 | NUR ---
06/20/21 1355 May Bahen[place] 1335- PT ARRIVES TO PACU AROUSABLE TO VOICE. PT FALLS BACK TO SLEEP WHEN NOT BEING STIMULATED. RESP EVEN AND UNLABORED. OXYGEN SAT MID 90'S ON 6L VIA MASK. PT'S RECTAL TUBE CONNECTED TO [address] MARTINEZ'S VERBAL ORDER. DARK BROWN LIQUID EMPTING INTO THE SUCTION CANISTER. 1339- PT'S OXYGEN SATURATION DECREASING INTO THE HIGH 80'S ON 6L VIA MASK. PT WOKE UP AND ENCOURAGED TO TAKE DEEP BREATHS, OXYGEN SAT DID NOT IMPROVE. PT NEEDS REMINDERS TO TAKE DEEP BREATHS HE FORGETS TO DO SO. PT ALSO MOVED TO HIS LEFT SIDE HE WAS OXYGENATING IN THE HIGH 90'S ON HIS SIDE DURING THE PROCEDURE. OXYGEN SAT INSTANTLY IMPROVED FROM THE LOW 80'S ON 6L TO THE HIGH 90'S. BREATHING TREATMENT ALSO TALKED ABOUT WITH PHLEBOTOMIST SUPERVISOR/INSTRUCTOR THE PT MISSED HIS SCHEDULED DUONEB. LUNG NARAYAN ARE CLEAR WITH DIMINISHED BASES. 1344- PT IS AWAKE AND ASKING QUESTIONS ABOUT WHAT HAPPENED. PT UPDATED. PT'S OXYGEN SAT REMAINS IN THE HIGH 90'S ON 6L VIA MASK. 1349- DR. MARTINEZ AT THE BEDSIDE TO TALK WITH THE PT.
--- NOTE | 2021-06-20 14:30 | NUR ---
PT BACK FROM [facility], ORIENTATED TO PERSON HAS A RECTAL TUBE IN PLACE SET TO WALL SUCTION 80 PER PROVIDER ORDER, DENIES PAIN, ON 2L NC, VSS
--- NOTE | 2021-06-20 15:45 | NUR ---
IN pt ROOM FOR VS. pt DROWSY, AWAKENS TO VOICE. SPO2 WNL ON 2L OXYGEN BY NC. VSS. TUBING DRAINING GREEN FLUID TO CANNISTER WNL, SUCTION AT 80 MMHG. CALL LIGHT IN REACH. NO REQUESTS AT THIS TIME.
--- NOTE | 2021-06-20 16:11 | NUR ---
rn in to check status of rectal tube drainage, seems to have slowed down irrigated per order with 60 cc of tap water and suction tubing cleared out
--- NOTE | 2021-06-20 18:15 | NUR ---
RN IN ROOM TO IRRIGATE RECTAL TUBE 50CC OF TAP WATER INSTERTED PT TOLERATED WELL SLEEPING IN BED NO NEEDS.
--- NOTE | 2021-06-20 19:30 | NUR ---
SHIFT REPORT RECEIVED BY THIS RN FROM CAROLYN CHAVEZ. PATIENT RESTING QUIETLY IN SEMI-FOWLERS POSITION, EYES CLOSED, RESPIRATIONS REGULAR AND EVEN, O2 SAT=95% ON 2L/NC. PATIENT'S WORKING ON SOME THINGS SITTING ON THE COUCH. CALL LIGHT IS IN REACH AND PATIENT HAS NO CURRENT CARE NEEDS AT THIS TIME.
--- NOTE | 2021-06-20 20:25 | NUR ---
PATIENT RECTAL TUBE IRRIGATED WITH 100MLS WATER AND 200MLS OF STOOL HAS BEEN SUCTIONED OUT WITH THE FLUSH REMOVED FROM THE TOTAL. VS ARE STABLE. PICKETT DRAINING QUANTITY SUFFICIENT URINE. PATIENT DENIES PAIN AND NAUSEA. IV FLUSHES WELL. PM MEDS GIVEN. PATIENT ABLE TO SHIFT HIMSELF AROUND IN BED. PATIENT FORGETFUL OF DATE AT TIMES. NEW ICE WATER AND GLASS OF APPLE JUICE GIVEN. PATIENT'S GIVEN A CUP OF COFFEE AND SUPPLIES. PATIENT HAS NO FURTHER NEEDS AT THIS TIME. CALL LIGHT IN REACH AND LIGHTS TURNED DOWN.
--- NOTE | 2021-06-20 20:50 | NUR ---
Patient asleep again and nursing requests we not give treatment.
--- NOTE | 2021-06-20 22:43 | NUR ---
PATIENT 2200 IV MEDS GIVEN. IV WNL. PICKETT STILL DRAININFG QUANTITY SUFFICIENT URINE. RECTAL TUBE FLUSHED WITH 150MLS WARM WATER AND AN ADDITIONAL 150MLS CAME OUT IN TO THE SUCTION CANNISTER. PATIENT STILL DENIES PAIN AND NAUSEA AND DENIES ANY NEEDS AT THIS TIME. CALL LIGHT IN REACH AND PATIENT'S RESTING ON THE COUCH.
--- NOTE | 2021-06-21 01:03 | NUR ---
PATIENT RESTING QUIETLY IN SEMI-FOWLERS POSITION, EYES CLOSED, RESPIRATIONS ARE REGULAR AND EVEN, CALL LIGHT IN REACH, AND LIQUID STOOL STILL MOVING SLOWLY TO SUCTION FROM RECTAL TUBE. PATIENT'S ASLEEP ON THE COUCH. NO CURRENT CARE NEEDS AT THIS TIME.
--- NOTE | 2021-06-21 02:52 | NUR ---
PATIENT RECTAL TUBE NO LONGER MOVING STOOL. TUBE FLUSHED WITH WARM WATER 50MLS X4 THIS RN GOT NO FLOW RETURN AFTER THE FIRST 150MLS OF FLUSH. STOOL FLOWING NOW AND 250MLS STOOL COUNTED IN CONTAINER AFTER 200MLS FLUSH SUBTRACTED. PATIENT STILL DENIES PAIN AND NAUSEA. PATIENT AT BEDSIDE. PATIENT TURNED TOWARD IS RIGHT SIDE AND HEELS FLOATED UP OF THE BED ON PILLOWS WITH THE HELP OF CAROLYN MEDINA. CALL LIGHT IN REACH AND PATIENT HAS NO OTHER CARE NEEDS AT THIS TIME.
--- NOTE | 2021-06-21 05:03 | NUR ---
PATIENT RESTING QUIETLY IN BED, RESPIRATIONS ARE REGULAR AND EVEN, EYES ARE CLOSED, AND CALL LIGHT IS IN REACH. PATIENT'S IS ASLEEP ON THE COUCH.
--- NOTE | 2021-06-21 06:20 | NUR ---
PATIENT'S RECTAL TUBE IRRIGATED AGAIN AND RETURNED 200MLS OF STOOL AFTER THE 100ML FLUSH WAS DEDUCTED. PATIENT HAS HAD 800MLS OF JUST STOOL OUT OF THE RECTAL TUBE THIS SHIFT. PATIENT REPOSITIONED TO HIS LEFT SIDE AND HEELS ARE STILL FLOATED ON PILLOWS. AM MEDS GIVEN. PICKETT STILL DRAINING QUANTITY SUFFICIENT. PATIENT STILL FORGETFUL OF TIME, DATE, PLACE, AND SURROUNDINGS. AT BEDSIDE. CONTINUOUS LOW WALL SUCTION REMAINS ON AT 80. VS REMAIN STABLE ON 2L/NC. PATIENT DENIES NAUSEA AND PAIN. CALL LIGHT IN REACH AND PATIENT VISITING WITH HIS AT THIS TIME. NO OTHER CURRENT CARE NEEDS.
--- NOTE | 2021-06-21 07:44 | NUR ---
Patient repositioned and switched to a longer bed. Patient denies pain. Rectal tube intact and patent to LIWS. Myself and other staff checked patients bottom during bed transfer, skin is intact, no redness noted. Rectal tube intact, notable stitch and obsite in [facility] Patient on 2L nc, respirations even and non labored. HOB elevated. at bedside.
--- NOTE | 2021-06-21 11:23 | NUR ---
Flushed rectal tube with 100ml of tap water, immediate return of brown stool post flush. Patient tolerated well. Patient denies nausea and or pain at this time.
--- NOTE | 2021-06-21 14:12 | NUR ---
Patient worked with physical therapy this afternoon, ambulated to chair. Patient remains sitting up in chair watching tv, no distress. Rectal tube intact, patient with brown stool noted. Flushed tube with 100ml of tap water, immediate return of stool noted. Encouraged patient to drink a clear ensure per provider's request. Patient visiting with . No current needs. Personal supplies and call light within reach.
--- NOTE | 2021-06-21 17:07 | NUR ---
RECTAL TUBE IRRIGATED WITH 100ML OF TAP WATER, IMMEDIATE RETURN OF BROWN RUNNY STOOL. PATIENT NEEDS ENCOURAGEMENT TO DRINK FLUIDS. ENSURE PROVIDED, PT REPORTS HE DOESN'T CARE FOR THEM. ENCOURAGED PATIENT TO CONTINUE TRYING ENSURE AT BEDSIDE. IV FLUIDS CONTINUE, IV PATENT. PATIENT DENIES NAUSEA AND PAIN. NO CURRENT NEEDS.
--- NOTE | 2021-06-21 20:19 | NUR ---
PT RESTING IN BED ALERT, HE VERBALIZES APPROPRIATELY, HE SWALLOWS HS MED PASS NO ISSUES, GAVE PT CHOCOLATE ENSURE ON ICE, HE TRIED IT AND SAID "YUM, CHOCOLATE" WILL CONTINUE TO ENCOURAGE INTAKE. HE VERBALIZES NO PAIN AT THIS TIME. BT NOTED IN ALL 4 QUADRANTS.
--- NOTE | 2021-06-21 21:47 | NUR ---
PT ALERT TO RN AT BEDSIDE. NGT TO RECTUM FLUSHED WITH 75ML OF LUKE WARM TAP WATER, REATTACHED TO SUCTION WITH IMMEDIATE RETURN, TUBE TO SUCTION CLEARED. PT REPORTS HE DID NOT FEEL ANYTHING DIFFERENT. ASSESSMENT AND MEDICATIONS ADMINISTERED PER ORDERS. PT REPOSITIONED TO THE LEFT WITH TWO PILLOW UNDER RIGHT LEG AND HIP.
--- NOTE | 2021-06-21 23:35 | NUR ---
pt has concumed 150ml of chocolate ensure at bedside.
--- NOTE | 2021-06-22 01:02 | NUR ---
PT SLEEPING EYES CLOSED RR EVEN, BODY POSITION RELAXED. NO DISTRESS NOTED.
--- NOTE | 2021-06-22 02:00 | NUR ---
PATIENT CALLED TO HAVE THE TV AND ROOM LIGHTS OFF. DONE. NO OTHER NEEDS AT THIS TIME.
--- NOTE | 2021-06-22 02:38 | NUR ---
RN ROUNDING AND MEDICATION REGLAN DUE PER SCHEDULE, PT HAD SLIDE DOWN IN BED, TWO PERSON ASSIST TO BOOST PT UP WITH ROPER HORUDY MATE, BED POSITIONED TO RAISE FOOT OF BED AND ELEVATED PT HEAD TO HIS PREFERENCE, PT ASKED WHERE HIS IS. PT REORIENTED TO TIME. HE SAID "OH YAY, SHE IS HAD TO GO HOME" HE THEN RELAXED AND SAID "I WILL JUST TRY TO SLEEP SOMEMORE" NO OTHER ISSUES OR REQUESTS.
--- NOTE | 2021-06-22 06:33 | NUR ---
PT RESTING IN BED ALERT TO RN IN ROOM, NGT TO RECTUM FLUSHED WITH 80ML TAP WATER PER ORDER, TUBE IS PATENT. PT REPORTS NO PAIN. AM MEDS ADMINISTERED PER SCHEDULED ORDERS. V/S STABLE, I/O COMPLETE, CELESTINA NUÑEZ LOOPER OPERATOR ASSIST IN TURNING PT IN BED TO LEFT TO CHECK UNDERNEATH PT, NO STOOL NOTED ON WHITE INCONTINENT PAD. PT TOLERATED ACTIVITY WELL.
--- NOTE | 2021-06-22 07:30 | NUR ---
Patient resting in bed, respirations even and non labored. Patient has no distress. Garcia intact and patent, clear yellow urine noted. Rectal tube intact, patent to CWS @ 80MMHG, brown stool noted.
--- NOTE | 2021-06-22 09:26 | NUR ---
RECTAL TUBE FLUSHED WITH 100ML TAP WATER, IMMEDIATE RETURN OF LIGHT COLORED BROWN STOOL. RECTAL TUBE ALSO CLEARED WITH FRESH TAP WATER AND CHANGED CANISTER DUE TO FOUL SMELLING STOOL THROUGHOUT ROOM. PICKETT INTACT, PATENT WITH CLEAR YELLOW URINE NOTED. PATIENT'S STOMACH IS SOFT TO TOUCH, PT DENIES PAIN AND OR NAUSEA. ACTIVE BOWEL TONES X4 QUADRANTS. PATIENT ON 1L OXYGEN PER NC, RESPIRATIONS EVEN AND NON LABORED. CHOCOLATE ENSURES PROVIDED TO PATIENT AT THIS TIME. NO CURRENT NEEDS. PERSONAL SUPPLIES AND CALL LIGHT WITHIN REACH.
--- NOTE | 2021-06-22 11:34 | NUR ---
updated over phone regarding plan of care.
--- NOTE | 2021-06-22 11:41 | NUR ---
POA at bedside, she reports she thinks patient has . Notable faint carotid pulse at this time.
--- NOTE | 2021-06-22 12:18 | NUR ---
Rectal tube flushed with 100ml of tap water, immediate return of light brown colored stool. Patient reports his stomach is bothering him and he is tired today. Encouraged patient to drink water and ensure, patient very hesitant to drink fluids. Patient up in chair at this time. Call light within reach.
--- NOTE | 2021-06-22 13:16 | NUR ---
Dr. Tucker ordered for patient to drink regular Ensures while on a clear liquid diet. Patient seems to like the chocolate Ensures (currently we have Ensure Plus). Each one has 350 calories and 13 grams protein. Otherwise, he is on a clear liquid diet due to [place]'s syndrome. Will continue to monitor.
--- NOTE | 2021-06-22 13:30 | NUR ---
Patient sitting up in chair, no distress. Patient denies nausea and abdominal pain at this time. Patient reports his rectum is a bit painful from where the tube is sitting. Repositioned pt with pillow. Fresh water provided.
--- NOTE | 2021-06-22 13:30 | NUR ---
Spoke with pt. He denies needs, is home. I did not get to speak with Dr. Griffin today, per notes he is considering surgery and will speak with pts . Pt is pleasant, but has dementia and does not remember if he has spoke with
--- NOTE | 2021-06-22 14:10 | NUR ---
Patient states his stomach is upset. Zofran 4mg IVP admin at this time. Rectal tube flushed with 100ml of tap water, immediate return of light colored stool.
--- NOTE | 2021-06-22 16:21 | NUR ---
Patient moved to room #109 for a better view. Patient's at bedside.
--- NOTE | 2021-06-22 17:09 | NUR ---
RECTAL TUBE FLUSHED WITH 100ML OF TAP WATER, IMMEDIATE RETURN OF LIGHT BROWN COLORED STOOL. PATIENT DENIES NAUSEA AND OR PAIN AT THIS TIME. ENSURE PROVIDED; PT DOES NOT HAVE GREAT PO INTAKE AND NEEDS PROMPTING TO DRINK. PATIENT HAS NO CURRENT NEEDS. AT BEDSIDE. IV PATENT.
--- NOTE | 2021-06-22 17:50 | NUR ---
PT AWAKE IN BED VISITING WITH AT BEDSIDE. CALL LIGHT WITHIN REACH. NO FURTHER NEEDS AT THIS TIME.
--- NOTE | 2021-06-22 19:07 | NUR ---
Patient had a total of 450ml of brown runny stool for this shift.
--- NOTE | 2021-06-22 20:05 | NUR ---
PATIENTS I+O DONE AND VS STABLE PM ASSESSMENT COMPLETE. PATIENT HAS HAD ANOTHER 100MLS OF LIQUID OUT TO SUCTION AT THIS TIME. PATIENT IS IN THE ROOM VISITING. CAROLYN LOWERY HER TO HELP WITH VS AND CAROLYN WASHINGTON ALSO HERE TO GIVE PATIENT'S NEBS. ICE BLANCO FOR PATIENT AND BOTH REFILLED. PATIENT HAS NO OTHER CARE NEEDS AT THIS TIME. CALL LIGHT IN REACH AND CAROLYN WASHINGTON REMAINS IN THEE ROOM.
--- NOTE | 2021-06-22 22:30 | NUR ---
PATIENT WAS RESITN QUIETLY AND IN TO GIVE PM MEDS. PATIENT'S IS SIGNING PATIENT'S SURGERY CONSENT WITH BEVERLEY CHARGE NURSE. PATIENT DENIES PAIN, BUT STOMACH WAS A LITTLE UPSET, SO 4MG IV ZOFRAN GIVEN. RECTAL TUBE FLUSHED WITH 100MLS WARM WATER, AND ONLY GOT THE SAME AMOUNT WHEN SUCTIONED BACK OUT. CONTINOUS LOW WALL SUCTION AT 80 REMAINS IN [place]. CALL LIGHT IS IN REACH AND PATIENT HAS NO OTHER CARE NEEDS AT THIS TIME. CALL LIGHT IN REACH AND LIGHTS TURNED DOWN AT PATIENT'S REQUEST.
--- NOTE | 2021-06-22 22:33 | NUR ---
CONSENT SIGNED BY pt'S . pt AND VERBALIZE UNDERSTANDING OF PLAN OF CARE, HAVE NO ADDITIONAL QUESTIONS FOR MD. PRIMARY RN STEVE IN ROOM TO ADMINISTER MEDICATIONS.
--- NOTE | 2021-06-22 23:47 | NUR ---
HAD TO WAKE UP TO GIVE PATIENT PO ANTIBIOTIC FOR PRE=OP TOMORROW. HAD ALREADY CALL TO CLARIFY NEOMYCIN 500G PO INSTEAD OF THE 1,000MG DOSE TELE-PHARMACY SUGGESTED. ALSO CLARIFIED 500MG FLAGYL PO TO BE GIVEN WELL THE IV FLAGYL PATIENT IS ALREADY ON. CLARIFIED TO GIVE BOTH ORDERED. PHARMACIST JUST DROPPED THE NEOMYCIN TO GIVE. PATIENT DENIES NAUSEA AND PAIN. RECTAL TUBE IRRIGATED WITH 50MLS WARM WATER, AND STILL ONLY GETTING OUT VERY LITTLE TO SUCTION OTHER THAN THE WATER USED. PATIENT DENIES ANY NEEDS AT THIS TIME. THIS RN HAD PRAYED WITH PATIENT AND LEFT THE ROOM. CALL LIGHT IS IN REACH.
--- NOTE | 2021-06-22 23:55 | NUR ---
Pharmacist on-call came in to dispense neomycin. Dose of 500mg verified
--- NOTE | 2021-06-23 01:38 | NUR ---
PATIENT RESTING QUIETLY AT THIS TIME, EYES CLOSED, RESPIRATIONS ARE REGULAR AND EVEN, AND PATIENT'S ASLEEP ON THE COUCH ON HER CPAP. PATIENT HAS NO CURRENT CARE NEEDS AND CALL LIGHT IS IN REACH.
--- NOTE | 2021-06-23 02:50 | NUR ---
PATIENT GIVEN HIS SCHEDULED IV REGLAN. PATIENT DENIES PAIN AND NAUSEA AND HAS BEEN SLEEPING. PICKETT EMPTIED AND RECORDED. RECTAL TUBE FLUSHED AGAIN 50MLS WARM WATER AND ONLY GOT THE SAME AMOUNT OF STOOL COLORED WATER BACK. LIGHTS TURNED DOWN AND WARM BLANKETS GIVEN SO PATIENT CAN TRY AND GO TO SLEEP. PATIENT'S ASLEEP ON HE COUCH.
--- NOTE | 2021-06-23 04:32 | NUR ---
IV PUMP ALARMING. NEW BAG IVF INFUSING WNL. ANTIBIOTIC HANGING NOTED NOT STARTED, STARTED AT THIS TIME. pt ASSISTED TO REPOSITION TO RIGHT SIDE WITH TWO RN ASSIST. PCIKETT DRAINING CLEAR YELLOW URINE. CALL LIGHT IN REACH.
--- NOTE | 2021-06-23 05:50 | NUR ---
PATIENT HAS BEEN RESTING QUIETLY. VS STABLE, BUT SBP A LITTLE SOFT IN THE LOW 100'S. AM MEDS GIVEN, PICKETT EMPTIED, ASSESSMENT COMPLETE, AND RECTAL FLUSHED WITH 50MLS WATER. THIS RN HAS ONLY GOTTON 100MLS OF STOOL OUT THIS SHIFT AFTER THE FLUSHES WERE SUBTRATED. PATIENT DENIES PAIN OR ANY NEEDS. PATIENT HAS BEEN NPO SINCE MIDNIGHT. CALL LIGHT IN REACH AND PATIENT'S ASLEEP ON THE COUCH.
--- NOTE | 2021-06-23 07:06 | NUR ---
CALLED FOR K+ LEVEL OF 2.6 THIS AM. ORDERED 20MEQ IV X3 DOSES FOR A TOTAL OF 60MEQ IV. THEN RECHECK BMP AFTER K+ RIDER COMPLETE. READ THIS BACK FOR COMFIRMATION AND ORDERED IT.
--- NOTE | 2021-06-23 07:34 | NUR ---
THIS RN RECEIVED REPORT FROM STEVE LEON. PT APPEARS TO BE RESTING AT THIS TIME WITH RESPIRATIONS NOTED AND POTASSIUM NOTED, NEW ORDER PLACED.
--- NOTE | 2021-06-23 07:45 | NUR ---
THIS RN IN PTS ROOM TO START POTASSIUM. PT AND PTS BOTH RESTING COMFORTABLY.
--- NOTE | 2021-06-23 07:52 | NUR ---
THIS RN IN PTS ROOM TO CHANGE THE RATE OF THE POTASSIUM INFUSION
--- NOTE | 2021-06-23 09:15 | NUR ---
ADMIN ZOFRAN 4MG IVP FOR REPORTS OF NAUSEA.
--- NOTE | 2021-06-23 09:30 | NUR ---
this rn received call from to increase the rate of potassium. per luis f in pharmacy if we were to do this we would need to put pt on a tele. rate increased and cardiac tele placed on pt.
--- NOTE | 2021-06-23 09:45 | NUR ---
this rn in pts room to give pt the rest of his morning meds. pt states that he is doing well but appears to be confused/ forgetful- pt couldn't remember where his daughters lived. this rn flushed pts recal tube with 65ml of warm tap water- there was stool like fluid in tubing but none new drainage colleceted in cannister prior to flushing.
--- NOTE | 2021-06-23 11:30 | NUR ---
this rn in pts room with ebony rn to reposition pt. pt boosted in bed and turned to a side to get pt more comfotable. pt doing well and states that he needs nothing more this rn did note more stool in rectal tubing with suciton
--- NOTE | 2021-06-23 12:06 | NUR ---
THIS RN CALLED MD ABOUT POTASSIUM. PT NOT TO HAVE SURGERY, PT ALLOWED TO BE ON A CLEAR LIQUID DIET.
--- NOTE | 2021-06-23 12:49 | OR ---
[facility] [address], [place] [address] Signed DATE OF OPERATION: 06/20/2021 SURGEON: Harish Martinez MD PREOPERATIVE DIAGNOSES: 1. 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 2. Underlying colitis, otherwise unspecified. POSTOPERATIVE DIAGNOSES: 1. Persistent/recurrent Keya syndrome. 2. Underlying colitis, otherwise unspecified. PROCEDURES: 1. Decompressive colonoscopy. 2. Placement of decompressing nasogastric tube into colon. ANESTHESIA: Propofol infusion, Osmany Valle CRNA INDICATIONS: This 66-year-old white man has numerous medical problems including dementia and implanted neurostimulation device, history of cauda equina syndrome, and other problems. He presented on 14 June 2021 with abdominal distention. A CT scan finding showing marked distention of the colon. This was consistent with [place] syndrome. He did not have electrolyte abnormalities, but has numerous well described risk factors for Keya syndrome. 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 He underwent decompressive colonoscopy a few days ago, which was beneficial to him. He is not a candidate for neostigmine based on his COPD. Decompression was beneficial and subsequent treatment with MiraLAX did allow for marked evacuation of the stool, but his symptoms and signs have returned and he has quite marked abdominal distention. He has been maintained on hydrocortisone, changed to prednisone yesterday when biopsies from previous colonoscopy confirmed "colitis." He was changed from Reglan that was being given intravenously to erythromycin orally administered. In the past two days, he has had no bowel movements and only minimal flatus. His abdominal distention is quite a bit more marked today. He is not particularly tender and shows no sign of toxicity, not have classic toxic megacolon, but I have recommended decompressive colonoscopy once again at this time possibly to place a decompressing tube. I think he ultimately will require subtotal colectomy, given the chronicity of his symptoms and signs and his underlying situation. Alternative methods including decompressive cecostomy and other Electronically Signed By: HARISH MARTINEZ MD 06/23/21 1249 PATIENT NAME: KATTY GUZMAN OPERATIVE REPORT DATE OF : 59 REPORT #: [id number] PHYSICIAN: HARISH MARTINEZ MD PCP: MARGIE WAGGONER DO REPORT IS CONFIDENTIAL AND NOT TO BE RELEASED WITHOUT AUTHORIZATION [facility] [address] [place] [id number] Signed interventions would also be considered of course. For now, the patient and his understand the risks of bleeding, infection, and perforation related to decompressive colonoscopy and wished to proceed. FINDINGS: Copious gelatinous stool was noted coating the colon. Solid stool was noted more proximally. Decompression was undertaken as best could be and placement of a 16-Wolof nasogastric tube undertaken as well. Irrigation with that and decompression did allow for more decompression of the colon I believe. DESCRIPTION OF PROCEDURE: The patient was brought to the endoscopy suite and placed in lateral decubitus position and given intravenous sedation with propofol infusional technique. Anorectal examination showed moderately thickened stool in the perianal area consistent with spontaneous egress of stool from the anal canal. Digital rectal examination showed some sphincter tone, but less than would be expected for age. An Olympus video colonoscope was passed in the rectum and manipulated into the rectum where a capacious rectum was noted. This was decompressed and irrigation undertaken. Continuous and progressive irrigation was undertaken and upon passage of the scope as far as possible to that point where solid stool was noted. Irrigation was undertaken, but more passage of the scope was quite unlikely. On that basis, irrigation was undertaken upon withdrawal of the scope. A 16-Wolof nasogastric tube was then secured with a suture in its distal portion and using the biopsy forceps, the nasogastric tube grasped and dragged alongside the tube as was once again passed as far as possible. The grasping loop was released and tube secured suctioning and irrigating as the scope was withdrawn. The tube appeared to have remained in place largely. Irrigation of the tube was undertaken and reestablishment of suction decompressing a fair amount of liquid stool. The tube was then secured to the right buttock area so as to avoid migration of it and the patient was then taken to recovery room. The patient tolerated procedure well. There was no known complication. The abdomen was much softer at conclusion of the procedure. MD NOE Tsai/MODL /[id number] Electronically Signed By: HARISH MARTINEZ MD 06/23/21 1249 PATIENT NAME: KATTY GUZMAN OPERATIVE REPORT DATE OF : 59 REPORT #: [id number] PHYSICIAN: HARISH MARTINEZ MD PCP: MARGIE WAGGONER DO REPORT IS CONFIDENTIAL AND NOT TO BE RELEASED WITHOUT AUTHORIZATION [address] [address] Signed cc: Pj Guzman MD Copies: PJ GUZMAN DO ~ Electronically Signed By: HARISH MARTINEZ MD 06/23/21 1249 PATIENT NAME: KATTY GUZMAN OPERATIVE REPORT DATE OF : 59 REPORT #: [id number] PHYSICIAN: HARISH MARTINEZ MD PCP: MARGIE WAGGONER DO REPORT IS CONFIDENTIAL AND NOT TO BE RELEASED WITHOUT AUTHORIZATION
--- NOTE | 2021-06-23 12:59 | NUR ---
No change in plan for cm at this time.
--- NOTE | 2021-06-23 13:45 | NUR ---
PT AWAKE IN THE BED CHATTING WITH AT BEDSIDE. CALL LIGHT WITHIN REACH. NO FURTHER NEEDS AT THIS TIME.
--- NOTE | 2021-06-23 14:09 | NUR ---
THIS RN CALLED DR.MCBEE SHANI SERRANO ORDER ON RECTAL TUBE FLUSHING- WE ARE TO CONTINUE FLUSHES BUT TO MINIMIZE THE AMOUNT THAT IS FLUSHED INTO TUBE- PER MD, LESS THAN 30ML FLUSHED IS PREFERRED.
--- NOTE | 2021-06-23 14:15 | NUR ---
this rn in pts room to give midday meds. pt sitting upright in bed. pt states that he is doing well and needs nothing further. pt reports that he has no pain or nausea at this time.
--- NOTE | 2021-06-23 16:30 | NUR ---
this rn in pts room to give meds. pt states that he wants to be repositioned, this rn assisted pt to his other side to lay on for comfort. pt states that he needs nothing further. this rn set pt up for dinner. call light within reach
--- NOTE | 2021-06-23 19:15 | NUR ---
infusing kcl stopped and kcl lab to be drawn early per Dr. Garcia's request. Dr. Garcia would like Dr. Griffin to be consulted via phone for heart rate of 45/46bpm and kcl status.
--- NOTE | 2021-06-23 19:27 | NUR ---
REPORT RECEIVED FROM CAROLYN SLATER. pt RESTING IN BED WITH EYES CLOSED, BREATHING UNLABORED. 1L OXYGEN BY NC IN PLACE. IN CHAIR AT BEDSIDE. HR 47 ON TELE 1. AWARE, VERBAL ORDER TO DRAW POTASSIUM LABS NOW. LAB NOTIFIED AND IN ROOM AT THIS TIME.
--- NOTE | 2021-06-23 19:27 | NUR ---
Called Dr. Griffin regarding heart rate of 45/46bpm. Dr. Griffin would like Dr. aGrcia to be consulted regarding this. Dr. Garcia updated. Reported to Dr. Griffin that lab was coming now to recheck kcl levels. Patient is resting, eyes closed, respirations even and non labored. No notable distress. remains at bedside. Oncoming RN updated.
--- NOTE | 2021-06-23 20:13 | NUR ---
PHONED. NOTIFIED POTASSIUM 3.2. TELEPHONE ORDER TO RESTART POTASSIUM INFUSION. ORDER REPEATED BACK TO VERIFY.
--- NOTE | 2021-06-23 23:00 | NUR ---
pt AWAKE RESTING IN BED. 1L OXYGEN BY NC IN PLACE. VSS. PICKETT CARE COMPLETE. PICKETT EMPTIED. 30 ML TAP WATER FLUSH TO NGT RECTAL TUBE, DRAINING GREEN DRAINAGE, SUCTION IN PLACE. NEW IV STARTED RIGHT WRIST. IV ANTIBIOTIC AND IV POTASSIUM INFUSING SEPEARTE IV SITES, GOOD BLOOD RETURN IN BOTH IV SITES. EDUCATION PROVIDED. ASSESSMENT COMPLETE. pt HOYERED WITH 3PA, NEW COLLINS SHEET PLACED UNDER pt. pt REPOSITIONED FLOATING ON PILLOWS. DRINKS OF SPRITE PROVIDED. CALL LIGHT IN REACH. UP IN CHAIR. CONSENT SIGNED FOR CENTRAL LINE PLACEMENT.
--- NOTE | 2021-06-24 00:15 | NUR ---
IN ROOM TO HANG POTASSIUM RIDERS. pt RESTING IN BED WITH EYES CLOSED. BREATHING EQUAL AND UNLABORED. 1L OXYGEN BY NC IN PLACE. ASLEEP ON COUCH. PICKETT DRAINING WNL.
--- NOTE | 2021-06-24 02:30 | NUR ---
IN pt ROOM TO HANG IV POTASSIUM RIDER. pt AWAKENS TO VOICE. IV POTASSIUM RIDER INFUSING WNL. ASSESSMENT COMPLETE. IV SITES FLUSHED WNL. SCHEDULED MEDICATION ADMINISTERED. BOWEL TONES HYPOACTIVE X 4, ABD SOFT, NONTENDER WITH PALPATION, NGT RECTAL TUBE TO SUCTION. 1L OXYGEN BY NC IN PLACE. CALL LIGHT IN REACH.
--- NOTE | 2021-06-24 03:54 | NUR ---
RECEVEIVED REPORT FROM BEVERLEY LEON. PATIENT IS RESTING IN BED WITH EYES CLOSED, RR16. CALL LIGHT IN REACH.
--- NOTE | 2021-06-24 04:57 | NUR ---
PATIENT WIPE DOWN COMPLETED. VITALS TAKEN AND RECORDED. PICKETT EMPTIED AND PICKETT CARE COMPLETED. PATIENTS INTAKE AND OUTPUT RECORDED. BLOOD DRAWN AND SENT TO LAB. PATIENT REPOSITIOND IN BED. IV INFUSING PER ORDER. SCHEDULED MEDICATIONS GIVEN PER ORDER. PATIENT DENIES ANY FURTHER NEEDS. ALL QUESTIONS ANSWERED. CALL LIGHT IN REACH. PRESENT IN ROOM.
--- NOTE | 2021-06-24 05:41 | NUR ---
PATIENTS SCHEDULED MEDICATIONS GIVEN PER ORDER. PATIENT DENIES ANOY NEEDS. CALL LIGHT IN REACH. ASLEEP ON THE COUCH.
--- NOTE | 2021-06-24 06:44 | NUR ---
PATIENT OFF THE FLOOR TO SURGERY.
--- NOTE | 2021-06-24 07:14 | NUR ---
Updated progress notes faxed to [facility] as pt will return to [facility] on dc.
--- NOTE | 2021-06-24 07:39 | NUR ---
this rn received report from mandy fairchild. pt off to surgery prior to this rn arriving to floor
--- NOTE | 2021-06-24 11:30 | NUR ---
Lengthy conversations with pts , while she waits during pt's surgery. She states they do not qualify for Medicaid at this time as they have shelter funds which can be drawn at this time. She is also concerned as she is not eligible for FMLA until Jul 07 as she recently started her job. She denies concern for losing her job. She is concerned pt will be discharged to quickly. She is also considering taking pt home and again is wanting to move him to [facility]. She states they are mad at her and she then states you told. I let her know, this is not what was said. Meka wanted to speak with her as she removed him as was not happy and they would like to know what the issues were so they could be corrected.I then reminded her he has used up his 20 Medicare days and most SNFS would not take as he does not have a secondary to cover the cost. She would have to pay out of pocket and I cannot guarantee they will accept him. She knows they have a bed for rehab at [place] and its in their best interest to stay put until they determine how much rehab he will need. She also needs to find a cg if she plans on taking him home and she has not been able to do so. [facility], but states she just needs a break and has not followed up. She believes he is service connected and was told he does have some benefits. She also feels overwhelmed and would like to go home for a few days but is concerned what staff would think. I reassured her he has 24 hour caregivers and if she needs a break now is the time to take a break. She also states she needs to return to work by next week. I encouraged her to speak with the transmitter engineer in charge and Dr. Griffin and let them know she will be leaving in the next day or so and also will return to work next week. Let her know its ok to leave and everyone understands she needs a break and has to work. I will pass this on to the transmitter engineer in charge and Dr. Griffin also.
--- NOTE | 2021-06-24 15:07 | NUR ---
06/24/21 1507 Sheets,Susan 1439 PT ARRIVED TO PACU ON 6L VIA MASK, PT REACTIVE TO TACTILE STIMULI PT DENIES PAIN AND NAUSEA. PT REORIENTED TO PACU. VSS. 1455 X-RAY AT BEDSIDE HOB INCREASED. NOHEMI DRAIN LIGHT RED FLUID NOTED AND DRAINED, RN WILL CONTINUE TO MONITOR. 1459 O2 REMOVED. PT VERY DROWSY.
--- NOTE | 2021-06-24 15:14 | NUR ---
CENTRAL LINE IN PLACE FROM OR, THREE LUMAN AND ORANGE CAPS PLACED.
--- NOTE | 2021-06-24 15:45 | NUR ---
PT ARRIVED BACK TO FLOOR AT THIS TIME VIA STRETCHER. PT DROWSY BUT ABLE TO ANSWER QUESTIONS APPROPRIATLEY. PT ABLE TO STATE NO PAIN CHRISTY SLIGHT NAUSEA NOTED. PT HAS A MIDLINE INCISION- ACTICOAT DRESSING WITH OPSITE OVER- C/D/I- 1 SMALL SPOT NOTED ON DRESSING OF DRAINAGE PT HAS A NOHEMI DRAIN IN THE LEFT LOWER QUADRANT- DRAINING LARGE AMOUNTS OF SEROSANGUINOUS FLUID- THIS RN EMPTIED WHEN PT ARRIVED TO FLOOR FOR 85ML. PT ALSO HAS A NEW ILEOSTOMY ON THE RIGHT LOWER QUADRANT THAT IS DRAINING BROWN/ SEROANGUINOUS FLUID. PT ALSO HAS AN NG TUBE IN PLACE THAT WAS SET UP TO LOW-INTERMITTANT SUCTION BY THIS RN. REVIEWED BY X-RAY PT ARRIVED WITH A CENTRAL LINE, TRIPLE LUMEN. ALL LINES FLUSHED AND DRAW BACK BLOOD- THIS RN WASTED 6ML OF BLOOD AND SENT LABS. FLUIDS STARTED PER PREPROCEDURE ORDERS PICKETT STILL IN PLACE- DRAINING CLEAR YELLOW URINE. PT ARRIVED ON ROOM AIR. PTS AT BEDSIDE. THIS RN RECEIVED REPORT FROM LAWANDA LEON.
--- NOTE | 2021-06-24 16:05 | NUR ---
PT ON CPOX. PT DESATED TO UPPER 80% ON ROOM AIR (PTS HANDS ARE COOL TO THE TOUCH- THIS RN APPLIED A WARM WATER FILLED GLOVE TO PTS HAND) THIS RN PLACED PT ON 1L NC. SATS IMPORVED TO LOW 90%.
--- NOTE | 2021-06-24 16:45 | NUR ---
THIS RN STILL IN PTS ROOM GETTING FLUIDS STARTED AND ANTIBIOTICS STARTED. PT ABLE TO DENY PAIN AND NAUSEA AT THIS TIME. PT DOES SOUND A BIT FLEMY, THIS RN PROVIDED ORAL CARE. BOWEL TONES ARE ACTIVE. BREATHING TREATMENT COMPLETED BY MIGUEL HDZ
--- NOTE | 2021-06-24 17:05 | NUR ---
THIS RN LEFT A VOICEMAIL FOR IN REGARDS TO PO ORDERS FOR PT DESPITE NO ORDERS TO PAUSE NG SUCTION
--- NOTE | 2021-06-24 17:15 | NUR ---
THIS RN IN TO CHECK ON PT. PT RESTING COMFORTABLY, RR 15. CPOX IN PLACE.
--- NOTE | 2021-06-24 17:45 | NUR ---
THIS RN IN TO CHECK ON PT. PT STATES THAT HE IS HAVING SLIGHT NAUSEA AND TOLERAABLE PAIN 10/01. NOHEMI EMTIED. MIDLINE INSCION UNCHANGED. ILEOSTOMY HAS A SMALL AMOUNT OF DRAINAGE NOTED. VITALS TAKEN. CPOX IN PLACE.
--- NOTE | 2021-06-24 18:19 | NUR ---
THIS RN LEFT VOICEMAIL WITH AT THIS TIME.
--- NOTE | 2021-06-24 19:45 | NUR ---
RECEIVED REPORT FROM DAY SHIFT. PATIENT REPOSITIONED IN BED. PATIENT DENIES ANY NEEDS. BRYON RN IN ROOM. IRON JAIMES IN REACH.
--- NOTE | 2021-06-24 20:30 | NUR ---
IN TO ASSIST RN WITH REPOSITIONED OF PT, PILLOWS UNDER RIGHT SIDE AND BETWEEN LEGS, NO FURTHER NEEDS
--- NOTE | 2021-06-24 20:45 | NUR ---
PATIENT REPOSITIONED UP ON LEFT SIDE. PATIENT WAS PAINFUL WITH MOVEMENT BUT STATED "MY BACK FEELS BETTER". PATIENTS VITALS TAKEN AND RECORDED. PICKETT EMPTIED, NOHEMI EMPTIED. PICKETT CARE COMPLETED. INTAKE AND OUTPUT RECORDED. SCHEDULED MEDICATIONS GIVEN PER ORDER. PATIENT TITRATED TO 3L VIA NC AND OXYGEN SATURATION IS WNL. PATIENT HAS A MIDLINE DRESSING IN PLACE, DRESSING REINFORCED WITH OPSITE AT BOTTOM END. SMALL AMOUNT OF DARINAGE NOTED ON MIDLINE DRESSING. PATIENTS NOHEMI DRESSING HAS A SMALL AMOUNT OF NOTED DRAINAGE AND DRESSING IS INTACT. PATIENT DENIES ANY NAUSEA AND RATES PAIN AT A 2/10. PATIENTS ABD IS SOFT AND TENDERNESS NOTED. PATIENTS BOWEL TONES ARE HYPOACTIVE. PATIENTS OSTOMY BAG HAS BROWN DRAINGE NOTED. PATIENT DENIES ANY OTHER NEEDS STATING "I AM TIRED EZRA". CALL LIGHT IN REACH. CPOX IN USE. SCDS IN USE. TELE #1, HR 68, SR.
--- NOTE | 2021-06-24 21:30 | NUR ---
PATIENTS SCHEDULED MEDICATIONS GIVEN PER ORDER. PATIENT STATED "I AM OK" AND DENIES ANY NEEDS. CALL LIGHT IN REACH.
--- NOTE | 2021-06-24 22:56 | NUR ---
PATIENT COMPLAINS OF PAIN ON HIS "BOTTOM". PATIENTS BOTTOM ASSESED AND THERE IS NO BREAKDOWN OR RED AREAS NOTED ON COCYX AREA. ALLYVN PLACED ON COCYX FOR CUSHION. PATIENT REPOSITIONED IN BED. PATIENT RATES PAIN AT A 6/10. PRN PAIN MEDICATION GIVEN PER ORDER. PATIENTS SCHEDULED MEDICATION GIVEN PER ORDER. IV INFUSING PER ORDER. CALL LIGHT IN REACH.
--- NOTE | 2021-06-25 00:18 | NUR ---
PATIENT REPOSITIONED TO HIS RIGHT SIDE. PATIENT WAS PAINFUL WITH ACTIVITY. PATIENTS NOHEMI DRESSING REINFORCED WITH GAUZE AND OPSITE. PATIENTS MIDLINE DRESSING REMAINS C/D/I, SMALL DRAINAGE NOTED. PATIENT REMAINS ON 3L VIA NC. SCHEDULED MEDICATION GIVEN PER ORDER. PATIENT DENIES ANY NAUSEA AND ONLY REPORTS PAIN WITH MOVEMENT. NOHEMI EMPTIED. OSTOMY EMPTIED. PATIENT DENIES ANY FURTHER NEEDS. CALL LIGHT IN REACH.
--- NOTE | 2021-06-25 02:13 | NUR ---
PATIENTS PICKETT EMPTIED. NOHEMI EMPTIED. INTAKE AND OUTPUT RECORDED. PATIENT REPOSITIONED. PATIENT DENIES ANY PAIN OR NAUSEA. PATIENT DENIES ANY NEEDS. CALL LIGHT IN REACH.
--- NOTE | 2021-06-25 03:15 | NUR ---
PATIENTS SCHEDULED MEDICATIONS GIVEN PER ORDER. PATIENT REPORTS "MY BELLY HURTS". PATIENT GIVEN PRN PAIN MEDICATION PER ORDER. PATIENT DENIES ANY FURTHER NEEDS. CALL LIGHT IN REACH.
--- NOTE | 2021-06-25 06:17 | NUR ---
PATIENT REPOSITIONED IN BED. PATIENT WAS PAINFUL WITH MOVEMENT. PATIENTS BLOOD DRAWN FROM CENTRAL LINE AND SENT TO THE LAB. PATIENT RATES PAIN AT AN 8/10 IN HIS "BELLY". PRN MEDICATION GIVEN PER ORDER. NOHEMI EMPTIED, PICKETT EMPTIED. PATIENT DENIES ANY NAUSEA. SCHEDULED MORNING MEDICATIONS GIVEN PER ORDER. PATIENT REMAINS ON 3L VIA NC. CPX IN USE. TELE #1 HR 56, SINUS EVE. PATIENT CONTINUES TO WEAR SCDS AND HEEL PROTECTORS. IV INFUSING PER ORDER. PATIENTS ABD IS SOFT AND TENDER IN PLACE. PATIENTS MIDLINE HAS NO NEW DRAINAGE, DRESSING REMAINS C/D/I. NOHEMI DRESSING REMAINS C/D/I AND NO NEW DRAINAGE NOTED. NO FURTHER NEEDS NOTED. CALL LIGHT IN REACH.
--- NOTE | 2021-06-25 07:20 | NUR ---
IN TO SEE PT. PT LAYING IN BED WITH HOB SLIGHTLY ELEVATED. PT ALERT, PLEASANT. PT UPDATED ON PLAN OF CARE. HAND OFF REPORT RECIEVED. DRESSING TO CENRTAL LINE INTACT. DRESSING TO LEFT ABD INTACT. ILLIOSTY PUTTING OUT DARK BROWN LIQUID AT THIS TIME. SCDS ON AT THIS TIME. NOHEMI DRAIN EMPTIED. NO OTHER COCNERNS OR REQUEST. BED RAILS X 4 UP. CALL LIGHT IN REACH.
--- NOTE | 2021-06-25 08:27 | NUR ---
IN TO SEE PT. AM ASSESSMENT AND MEDICATIONS DUE. PT WITH C/O OF DISCOMFORT TO BOTTOM. PT REPOSITIONED FOR COMFORT. NEW BAG IV FLUIDS HUNG PER ORDER. OSTOMY INTACT, DARK BROWN LIQUID STOOL. DRESSING TO NOHEMI DRAIN C/D/I. NOHEMI DRAIN EMPTIED. BRUISING NOTED TO LEFT UPPER EXTREMITITY. BT HYPOACTIVE. DECREASED SENSATION TO LEFT LOWER EXTREMITIY. 02 91 ON 3LNC, HR 61. CENTRAL LINE FLUSHING WELL WITH BLOOD RETURN X 3. PT REPOSITIONED TO RELIEVE PRESSURE FROM BOTTOM. PT WITH C/O PIAIN IN BOTTOM, PT UNABLE TO DESRIBE OR RATE PAIN. NO OTHE COCNERNS OR REQUEST AT THIS ITME. CALL LIGHT IN REACH.
--- NOTE | 2021-06-25 09:21 | NUR ---
Patient has been resting in bed and is now awake. Patient is tired however.
--- NOTE | 2021-06-25 09:30 | NUR ---
Spoke with pt and he states he fills ok, but some pain. out of room.
--- NOTE | 2021-06-25 09:58 | NUR ---
CALLED HOSPITAL FOR UPDATE. DISCUSSED PT NIGHT, PAIN MANAGEMENT, OUTPUT AND PLAN OF CARE. AGREEABLE TO PLAN. ENCOURAGED PT'S TO REST AT HOME AND CALL FOR UPDATES. SHE HAS BEED PRETTY STRESSED OUT LATELY. SAID SHE WOULD LIKE TO STAY HOME AND REST. WILL KEEP HER UP TO DATE.
--- NOTE | 2021-06-25 12:00 | NUR ---
in to se pt. pt with c/o pain 4/10 to buttocks, pt unable to report pain to abd; pt states "it just hurts. pt given prn torodol per order. middle lumen on central line contiues to flush well with blood return. pt repositioned to left side, pillow placed under right side. mid abd dressing continues to be c/d/i with small areas of shadowing to disal point of dressing. dean drain continues to put out ss drainage, small blood clots noted in dean drain at this time. iv fluids continue to be running at this itme. pt continues to be reoriented to place, situation, and cares. no other needs or requests at this time. bed rails x 4 up. call light in reach.
--- NOTE | 2021-06-25 12:22 | NUR ---
RT, MIGUEL IN WITH PT AT THIS TIME. PT O2 INCREASED TO 4LNC.
--- NOTE | 2021-06-25 13:21 | NUR ---
Patient has the call light in reach and is in bed resting.
--- NOTE | 2021-06-25 13:56 | NUR ---
IN TO SE PT, PT LAYING IN BED EYES WIDE OPEN. NOHEMI DRAIN AND OSTOMY EMPTIED AND DOCUMENTED. PT DENIES PAIN AT THIS TIME. ASSESSMENT COMPLETED. PT DENIES NUMBNESS AND TINGLING AT THIS TIME. PT MAKING HIS NEEDS KNONW WITH SHORT SENTENCES. NO OTHER NEEDS OR REQUESTS AT THIS TIME. BED RAILS X 4 UP. CALL LIGHT IN REACH.
--- NOTE | 2021-06-25 15:17 | NUR ---
IN TO SEE PT, MEDICATIONS DUE. PT REPOSITIONED TO THE RIGHT SIDE. HEEL PROTECTORS IN PLACE. CATH CARE COMPLETED. NO OTHER NEEDS OR CONCERS, BED RAILS X 3 UP, CALL LIGHT IN REACH.
--- NOTE | 2021-06-25 15:29 | NUR ---
IN TO SEE PT, MEDICATION DUE. OSTOMY APPLIANCE CHANGED DUE TO LEAKING. PT TOLERATED WELL. PT REPOSITIONED TO THE RIGHT SIDE. NOHEMI DRAIN EMPTIED. NO THER NEEDS OR CONCERS AT THIS TIME. CALL LIGHT IN REACH.
--- NOTE | 2021-06-25 16:58 | NUR ---
in to see pt. 2 lumens of central line heparin locked. pt toelrated well. this nurse assisted pt with shampooing of hair and combing hair. pt reports pain as 3/10 genrealized. hob elevated. pt updated on plan of care. no other needs or concers at this time. bed rails x 4 up, call light in reach.
--- NOTE | 2021-06-25 17:33 | NUR ---
IN TO SEE PT. PT ENCOURAGED TO ACCEPT ENSURE TO PROMOTE WOUND HEALING. PT ACCEPTED 100% OF ENSURE OFFERED. VS OBTAINED. I AND O'S COMPLETED. NOHEMI DRESSING RE-INFORCED, REMIANS C/D/I AT THIS TIME. NO OTHER NEEDS OR CONCERNS. BED RAILS X 3 UP. CALL LIGHT IN REACH.
--- NOTE | 2021-06-25 17:42 | NUR ---
Garcia was drained; 105 mls. RN was within the room.
--- NOTE | 2021-06-25 19:39 | NUR ---
new bag iv fluids hung and infusing as directed, central line dressing wnl. no further needs verbalized. call light in reach and primary rn ailin aware.
--- NOTE | 2021-06-25 19:44 | NUR ---
PT RESTING IN BED EYES CLOSED AT BEDSIDE REPORT FROM INDU LEON WITH PAZ RN, PT REPORTS HE IS PAINFUL. OSTOMY FULL AT BEDSIDE REPORT.
--- NOTE | 2021-06-25 19:50 | NUR ---
UPDATED ON THE [facility]60[facility] PER SHIFT REPORT.
--- NOTE | 2021-06-25 20:30 | NUR ---
IN ROOM TO ROUND NEUROPHYSIOLOGICAL TECHNICIAN AND TO ASSIST WITH EVENING VS. VSS, pt ON 3LNC, RR EVEN AND UNLABORED. NO DISTRESS NOTED. I&O'S ALSO COMPLETED, PRIMARY RN KIRK AWARE OF BOTH EVENING VS AND ALL I&O FINDINGS. PRIMARY CAROLYN BRADLEY AND RT JUVENTINO BOTH REMAIN IN ROOM TO COMPLETE pt CARE. CALL LIGHT IN REACH.
--- NOTE | 2021-06-25 20:38 | NUR ---
PT RESTING IN BED, ALERT COMPLETEING NEB TREATMENT. IV TYLENOL FOR PAIN 6/10 AT BUTTOCKS.
--- NOTE | 2021-06-25 23:08 | NUR ---
PT REPOSITIONED TO RIGHT SIDE PILLOWS PLACED, PERIPHERAL IV REMOVED X2, PT HAS TRIPLE LUMEN IJ. HE VERBALIZED HE HAS BEEN SLEEPING. NO OTHER CONCERNS OR REQUESTS.
--- NOTE | 2021-06-26 00:02 | NUR ---
PT RESTING IN BED EYES CLOSED RR EVEN, SINUS EVE PER TELEMETRY 57 BPM, PT POSTURE RELAXED, NO DISTRESS NOTED, 94% OXYGEN SATURATION ON 3L OXYGEN VIA N.C.
--- NOTE | 2021-06-26 02:31 | NUR ---
ROUNDING ON PATIENT, ABX ADMINISTERED PER ORDERS, NOHEMI EMPTIED FOR 100ML SEROSANGUINEOUS DRAINAGE, STRIPPED NOHEMI TUBE PER PROTOCOL. PICKETT EMPTIED FOR 500ML YELLOW URINE, OSTOMY EMPTIED FOR 100ML LIQUID STOOL, PATIENT REPOSITIONED TO RIGHT SIDE FROM LEFT SIDE. HE REPORTS COMFORTABLE AT THIS TIME. NO OTHER CONCERNS OR REQUSTS AT THIS TIME.
--- NOTE | 2021-06-26 05:58 | NUR ---
PT REPORTED PAIN AT START OF SHIFT, IV TYLENOL GIVEN PRN, PT SLEPT INTERMITTEN OVER SHIFT. HE HAS CONSUMED 75ML OF STRAWBERRY ENSURE, HE AGREES TO APPLE JUICE THIS AM, NOHEMI HAD TOTAL OF 150ML OUT OVER SHIFT, OSTOMY PUT OUT 250ML TOTAL, URINE OUT IMPROVED QUANTITY SUFFICIENT. HE HAS BEEN REPOSITIONED FREQUENT WITH CARE. HE IS NOTED TO HAVE GENERALIZED EDEMA 1+ TO 2. BLOOD DRAWN FOR LAB SENT. SCDS ON, CALL LIGHT IN REACH, STRIPPED NOHEMI WITH I/O.
--- NOTE | 2021-06-26 07:25 | NUR ---
IN TO SEE PT, PT SLEEPING EASILY WAKENS BY VOICE. NURSE HAND OFF REPORT RECIEVED. PT DENIES PAIN AT THIS TIME. PT LAYING IN BED WITH BED RAILS X 4 UP. NO OTHER NEEDS OR COCNERS AT THIS ITME. CALL LIGHT IN REACH.
--- NOTE | 2021-06-26 08:16 | NUR ---
IN TO SEE PT. AM MEDICATIONS AND ASSESSMENT DUE. PT ASSISTED TO CHAIR WITH 4 PEOPLE AND THE COLLINS. PT WITH PAIN AND DISCOMFORT TO ABD DURING TRANSFER 11/01. MATHEW DUBOIS TORODOL FOR PAIN MANAGEMENT. PT ALERT TO SELF. PT RE-ORIENTED TO PLACE, SITUATION, AND SURROUNDINGS. PICKETT CATHETER PUTING OUT ADEQUATE YELLOW URINE WITH SCANT SEDIMENT. INCISION DRESSING TO MIDLINE C/D/I WITH SMALL AREA OF SHADOWING TO DISTAL PORTION OF DRESSING. NOHEMI DRAIN EMPTIED, DRAINAGE DECREASING, MELBA SS. ILEOSTOMY CONTINUES TO PUT OUT BROWN LIQUID STOOL AT THIS TIME. PT UP IN CHAIR AT THIS TIME WITH LEGS ELEVATED AND SCD'S ON AT THIS TIME. NO OTHER NEEDS OR CONCERNS AT THIS TIME, CALL LIGHT IN REACH.
--- NOTE | 2021-06-26 10:25 | NUR ---
IN TO SEE PT. PT REMIANS SITTING UP IN CHAIR RESTING WITH EYES CLOSED. PAIN DECREASED TO 1/10 WITH FACES SCALE. NOHEMI DRAIN EMPTIED, ILLIOSTOMY EMPIED, PICKETT EMPTIED. CATHETER CARE PROVIDED. ORAL CARE PROVIDED. PT RE-ORIENTED TO PLACE, SURROUNDINGS AND SITUATION. PT REMIANS ALERT TO SELF. PT REPORTS HE IS COMFORTABLE AT THIS ITME AND WOULD LIKE TO REST. NO OTEHR COCNERS OR REQUESTS, CALL LIGHT IN REACH.
--- NOTE | 2021-06-26 11:00 | NUR ---
No change in plan for discharge.
--- NOTE | 2021-06-26 14:30 | NUR ---
AFTER I GOT PATIENT'S VITALS AND I&O THE NURSE CAME IN AND HELPED ME COLLINS PATIENT TO HIS BED. WE ALSO PUT PILLOW ON HIS LEFT SIDE. NURSE ALSO CHANGED HIS ALLYVEN.
--- NOTE | 2021-06-26 14:30 | NUR ---
PT. ASSISTED BY 2 STAFF FROM THE CHAIR TO THE BED VIA COLLINS. TOLERATED WELL. NOHEMI PICKETT, OSTOMY EMPTIED. PT. ASSISTED WITH REPOSITIONING WITH PILLOWS. ALLEVYN REMOVED FROM COCCYX. AREA IS REDDENED BUT BLANCHABLE WITHOUT SKIN BREAKDOWN. PT. LEFT RESTING WITH CLINICAL TRIALS NURSE IN THE ROOM.
--- NOTE | 2021-06-26 15:16 | NUR ---
IN TO SEE PT, MEDICATIONS AND ASSESSMENT DUE. CENTRAL LINE 1 LUMEN RUNNING CONTINUOUS IV FLUIDS AT THIS TIME, OTHER 2 LUMENS HEPARIN LOCKED AT THIS ITME. DRESSING TO MID-ABD C/D/I SMALL AMOUNT OF SHADOWING DISTAL PORTION OF DRESSING. DRESSING TO NOHEMI DRAIN C/D/I/. ILIOSTOMY FUNCTIONING WNL AND INTACT AT THIS TIME, NO LEAKING NOTED. BED BATH GIVEN. NO OTHER COCNERS OR REQUEST. BED RAILS X 4 UP. CALL LIGHT IN REACH.
--- NOTE | 2021-06-26 15:32 | PATH ---
[facility] [address], [place] [address] Signed SPECIMEN(S): A COLON AND PROXIMAL RECTUM SPECIMEN SOURCE: A. COLON AND PROXIMAL RECTUM CLINICAL HISTORY: Pseudo-obstruction of colon; [place]'s syndrome FINAL PATHOLOGIC DIAGNOSIS: Colon and proximal rectum, resection: - Colonic mucosa with multifocal ulceration and associated chronic active colitis. - Surgical margins appear viable. BRP:cml:C2NR MICROSCOPIC EXAMINATION: Histologic sections of all submitted blocks are examined by light microscopy. These findings, together with the gross examination, support the pathologic diagnosis. GROSS DESCRIPTION: The specimen, labeled "Katty Wakefield," and designated on the requisition "colon and proximal rectum," is received in formalin and consists of a portion of large bowel with attached terminal ileum. The large bowel is 151.5 cm in length and has an average internal circumference of 11.5 cm. The attached segment of terminal ileum is 2.8 cm in length and has an average internal circumference of 4.5 cm. No appendix is grossly identified. The serosal surface is violaceous and smooth with focal areas of adherent pink membranous tissue. Upon opening the mucosa of the terminal ileum is yellow-guerrero and finely granular. The posterior surface of the large bowel is green-red with focal areas of congestion and one ulcerated and cobblestoned lesion that is 40.5 cm in length and ranges in width from a 0.5 cm up to 10.5 cm. This lesion is 11.0 cm from the distal resection margin and 7.8 cm from the proximal resection margin. Sectioning through the ulcerated area reveals an indurated submucosa. Extension through the muscularis propria is not grossly identified. Distal to the ulcerated lesion is a pink, finely granular mucosa with a cobblestone pattern that is 5.5 x 4.5 cm, is 4 cm from the ulcerated lesion, and 1.5 cm from the distal resection margin. The bowel wall has an PATIENT NAME: KATTY WAKEFIELD PATHOLOGY DATE OF : 59 REPORT #: [id number] PHYSICIAN: EDD PATHOLOGY PCP: MARGIE WAGGONER DO REPORT IS CONFIDENTIAL AND NOT TO BE RELEASED WITHOUT AUTHORIZATION [facility] [address], [place] [address] Signed average thickness of 0.8 cm. Event Organizer sections are submitted in 11 cassettes. Cassette summary: (A1) proximal resection margin, shave (A2-A3) distal resection margin, shave (A4-A7) ulcerated lesion to uninvolved bowel wall (A8) cobblestoned mucosa distal to ulcerated lesion (A9-A11) uninvolved terminal ileum and large bowel proximal to ulcerated lesion. FB (under the direct supervision of a pathologist) The Gross Description was prepared using a voice recognition system. The report was reviewed for accuracy; however, sound-alike word errors, addition and/or deletions may occur. If there is any question about this report, please contact Client Services. PERFORMING LABORATORY: The technical component was performed by [employer] [address] (Metals Sales Representative: Stephanie Cowart MD; CLIA# [id number]). Professional interpretation was performed by [employer], [address] [address] (CLIA# [id number]). Diagnostician: Joel Rhodes MD Pathologist Electronically Signed 06/26/2021 Copies: ~ PATIENT NAME: KATTY WAKEFIELD PATHOLOGY DATE OF : 59 REPORT #: [id number] PHYSICIAN: EDD LAGUNAS PCP: MARGIE WAGGONER DO REPORT IS CONFIDENTIAL AND NOT TO BE RELEASED WITHOUT AUTHORIZATION
--- NOTE | 2021-06-26 22:01 | NUR ---
PT SLEEPING, ALERT TO RN AT BEDSIDE, V/S, I/O, COMPLETE, OSTOMY EMPTIED, NOHEMI DRAINED AND STRIPPED PER PROTOCOL. PT REPORT PAIN AT BUTTOCKS, TORDOL PRN GIVEN. ASSESSMENT AND MED PASS COMPLETE.PT'S ONLY REQUEST IS TO SLEEP, HE DECLINED A SNACK, CALL LIGHT IN REACH, SCDS ON.
--- NOTE | 2021-06-27 01:49 | NUR ---
PT RESTING QUIETLY IN BED EYES CLOSED RR 16 BPM, NO DISTRESS NOTED.
--- NOTE | 2021-06-27 04:32 | NUR ---
PT HAS SLEPT WELL OVER SHIFT, TURN/REPOSITION Q2 HOURS AND PRN, PT HAS GIVEN TORDOL PRN ONCE FOR REPORT OF PAIN 5/10 BUTTOCKS. QUANTITY SUFFICIENT URINE OUT, NOHEMI PATENT, OSTOMY PRODUCING MINIMAL AMOUNT. PT DROWSY EARLY IN SHIFT, MORE ALERT THIS AM. IVF INFUSING INTO IJ PER ORDERED. HE HAS REFUSED SNACKS OVER NIGHT AND ENSURE. FROM REPORT PT'S IS PLANNING TO VISIT THIS EARLY AFTERNOON.
--- NOTE | 2021-06-27 04:46 | NUR ---
PT USED CALL LIGHT TO CALL NURSES STATION TO REPORT IV BEEPING. RN INTO PT ROOM, PT ALERT, IV RESTARTED, PT HAS NO OTHER CONCERNS OR REQUESTS, ORIENTED PT TIME, PT SAID "I THINK I WILL GET SOME MORE SLEEP"
--- NOTE | 2021-06-27 05:49 | NUR ---
PT REPOSITIONED AT THIS TIME, HE REPORTS HIS LOWER BACK IS HURTING, 5/10, 2MG IV MORPHINE GIVEN PRN. PT REPORTS NO OTHER COMPLAINTS OR CONCERNS THIS AM, CALL LIGHT IN REACH. V/S STABLE
--- NOTE | 2021-06-27 08:30 | NUR ---
REPORT RECEIVED FROM NIGHT RN AND PT. CARE RESUMED. PT. IS DROWSY BUT EASILY AWAKENS. ORIENTED TO SELF AND AFFECT IS FLAT. URINE OUTPUT HAS INCREASED AND URINE IS LIGHT YELLOW WITH SMALL AMOUNT OF SEDIMENT. PT. DENIES PAIN. MIDLINE DRESSING REMAINS UNCHANGED SINCE YESTERDAY AND IS DRY AND INTACT. ILEOSTOMY BAG HAS A SMALL AMOUNT OF BROWN LIQUID STOOL. OSTOMY HERNANDEZ IS DRY AND INTACT. NOHEMI DRAIN EMPTIED OF 70ML OF SS FLUID. PT. ASSISTED BY 2 STAFF WITH COLLINS TRANSFER TO CHAIR AND TOLERATED WELL. HE ATE 50% OF BREAKFAST. I.J. LUMENS FLUSH WELL AND RETURN BLOOD. HEP. LOCKED. DISCUSSED POC AND NUTRITION. PT. ASSISTED WITH SITTING EOB BY TWO STAFF AND WAS ABLE TO SIT UP FOR APPROX. 10-15 SECONDS. LEFT RESTING IN BED WITH CALL LIGHT IN REACH.
--- NOTE | 2021-06-27 10:30 | NUR ---
P.T. UPTDATED THIS NURSE THAT PATIENT C/O BEING LIGHTHEADED WHILE ATTEMPTING TO SIT UP. CHECKED ON PT. HE REPORTS FEELING TIRED. VITALS STABLE. 02 SAT WAS 98% ON 3L NC. TITRATED TO 2L AND O2 SAT. REMAINED 95%. WILL CONTINUE TO MONITOR.
--- NOTE | 2021-06-27 12:22 | NUR ---
PT. ASSISTED BY TWO STAFF BACK TO BED VIA COLLINS. TOLERATED WELL. ASSISTED WITH PERSONAL CARE, NOHEMI EMPTIED AND ASSISTED WITH REPOSITIONING. LEFT SITTING UPRIGHT IN BED EATING LUNCH. CALL LIGHT IN REACH, CURTAIN OPEN.
--- NOTE | 2021-06-27 14:07 | NUR ---
PT. HAS EATEN 75% OF LUNCH AND ALL OF HIS SODA. HE IS MORE ALERT AND PLEASANT. REPORTS MODERATE ABDOMINAL PAIN THAT IS ACHING. ADMIN. TORADOL. OSTOMY EMPTIED OF BROWN LIQUID STOOL. BOWEL TONES ACTIVE. NOHEMI PATENT. MIDLINE DRESSING UNCHANGED. PT. ON 2L NC AND 02 SAT IS 93%. ASSISTED WITH REPOSITIONING. CATH. IS PATENT AND DRAINING YELLOW URINE. PT. LEFT RESTING WITH CALL LIGHT IN REACH.
--- NOTE | 2021-06-27 18:00 | NUR ---
PT. REPOSITIONED WITH 2PA. HE REPORTS ACHING IN HIS LEG. UPDATED AND TYLENOL AND MOTRIN ADDED TO MAR.
--- NOTE | 2021-06-27 19:33 | NUR ---
REPORT RECEIVED FROM DAY SHIFT RN. PT LYING IN BED ALERT AND ORIENTED. DENIES NEEDS. WHITE BOARD UPDATED. CALL LIGHT IN REACH. AT BEDSIDE.
--- NOTE | 2021-06-27 21:30 | NUR ---
EVENING ASSESSMENT COMPLETE. SCHEDULED MEDS ADMINISTERED PER EMAR. PRN FOR PAIN ADMINISTERED FOR ABD/BACK PAIN. PT DENIES NAUSEA. O2 2L/NC IN PLACE. OSTOMY WITH 200 ML BROWN LIQUID DRAINAGE. NOHEMI WITH 70 ML SEROSANG DRAINAGE. MIDLINE ABD DRESSING INTACT WITH SCANT AMOUNT OLD DRAINAGE. BOWEL TONES ACITVE. ABD SOFT AND NON DISTENDED. PICKETT PATENT WITH YELLOW URINE. 3PA WITH COLLINS TO REPOSITION PT IN BED WITH PILLOWS. SCD'S IN PLACE. PT DENIES FURTHER NEEDS. STAYING THE NIGHT. CALL LIGHT WITHIN REACH.
--- NOTE | 2021-06-28 00:05 | NUR ---
PT RESTING WITH EYES CLOSED UPON ENTERING ROOM. AWAKENS EASILY. REPOSITIONED TO RIGHT SIDE WITH PILLOWS. NOHEMI WITH 40ML SEROSANG DRAINAGE. PT REPORTS HE IS RESTING WELL. DENIES FURTHER NEEDS.
--- NOTE | 2021-06-28 02:52 | NUR ---
PT RESTING QUIETLY. REPOSITIONED IN BED WITH PILLOWS. DENIES NEEDS. CALL LIGHT IN REACH.
--- NOTE | 2021-06-28 05:55 | NUR ---
VS AND I&O COMPLETE. SCHEDULED MEDS AMDINISTERED PER EMAR. PRN FOR BACK/ABD PAIN ADIMINISTERED PER PT REQUEST. SCHEDULED LABS DRAWN FROM RIGHT IJ PER PROTOCOL. PT REPOSITIONED IN BED WITH PILLOWS. PT AGREES HE IS COMFORTABLE. IN ROOM. CALL LIGHT WITHIN REACH.
--- NOTE | 2021-06-28 08:30 | NUR ---
REPORT RECEIVED FROM NIGHT RN AND PT. CARE RESUMED. PT. IS ALERT AND ORIENTED TO SELF. IJ FLUSHED AND HEP. LOCKED. IT HAS BRISK BLOOD RETURN. OSTOMY HERNANDEZ INTACT AND DRAINING BROWN LIQUID. HE REPORTS MILD ABDOMINAL PAIN BUT REFUSES PAIN MEDS. ON 2L NC AND 02 SAT IS 94%. MIDLINE DRESSING IS CDI AND NOHEMI PATENT. BOWEL TONES ACTIVE. +2 EDEMA PRESENT BILAT. ANKLES. DISCUSSED POC, NUTRITION, AND MEDS. PT. LEFT RESTING WITH CALL LIGHT IN REACH AND AT BEDSIDE.
--- NOTE | 2021-06-28 10:17 | NUR ---
PT. MOVED FROM BED TO THE CHAIR VIA COLLINS WITH 2 STAFF. TOLERATED WELL. ASSISTED WITH REPOSITIONING WITH PILLOWS AND BROUGHT WATER. LEFT RESTING WITH .
--- NOTE | 2021-06-28 12:52 | OR ---
[facility] [address], [place] [address] Signed DATE OF OPERATION: 06/24/2021 SURGEON: Harish Martinez MD PREOPERATIVE DIAGNOSES: 1. Persistent colonic pseudo-obstruction (Keya syndrome). 2. Colitis as yet not otherwise clarified. 3. Multiple medical problems including chronic dementia, history of cauda equina syndrome with nerve stimulator, neurogenic bladder requiring persistent Garcia catheterization, obesity, chronic obstructive pulmonary disease, and hypercoagulable state (protein S deficiency). POSTOPERATIVE DIAGNOSES: 1. Persistent colonic pseudo-obstruction (Keya syndrome). 2. Colitis as yet not otherwise clarified. 3. Multiple medical problems including chronic dementia, history of cauda equina syndrome with nerve stimulator, neurogenic bladder requiring persistent Garcia catheterization, obesity, chronic obstructive pulmonary disease, and hypercoagulable state (protein S deficiency). PROCEDURES: 1. Subtotal colectomy with ileoproctostomy (side-to-end ileoproctostomy). 2. Splenic flexure mobilization. 3. Omental pedicle graft application. 4. Placement of right internal jugular central venous catheter placement. 5. Diverting loop ileostomy (protective). ASSISTING NURSE: Carmela Burnette R.N. ANESTHESIA: General endotracheal, Osmany Valle CRNA and preoperative Tap block and subcostal and axillary blocks. INDICATION: This 66-year-old white man was admitted by me on 06/14/2021, with clinical findings consistent with Keya syndrome (colonic pseudo-obstruction). He did not really have electrolyte abnormalities at time of admission. A nasogastric tube was placed and he had dilation of at least 11 cm in portions of the colon including the right side. He had no clinical evidence of peritonitis. A decompressive colonoscopy was performed as Electronically Signed By: HARISH MARTINEZ MD 06/28/21 1252 PATIENT NAME: KATTY GUZMAN OPERATIVE REPORT DATE OF : 59 REPORT #: [id number] PHYSICIAN: HARISH MARTINEZ MD PCP: MARGIE BURNETTE DO REPORT IS CONFIDENTIAL AND NOT TO BE RELEASED WITHOUT AUTHORIZATION [facility] [address], [place] [address] Signed he has contraindications to neostigmine and other methods. It is noted that he has had chronic long-standing difficulties with bowel movements and progressive constipation over time. He is markedly debilitated and has only limited abilities to be even upright and out of bed. He has undergone decompressive colonoscopy twice without improvement of his situation. Additionally, he was hospitalized in [facility] over 2 weeks ago for what was thought to be pulmonary problem, but also considered likely to have "colitis" for which he was treated with steroids. Biopsies on initial colonoscopy did confirm inflammatory changes of the colon despite unprepped bowel. Pathology report does describe colitis, but not otherwise specified, not specifically ulcerative colitis or other. Given the lack of progress with his situation, I have recommended to the patient and his a subtotal colectomy with ileoproctostomy as well as probable diverting loop ileostomy given the probability of inflammatory changes of the rectal mucosa despite over a week of steroid administration. The risks of bleeding, infection, anastomotic failure, and other unforeseen complications was reviewed with him both in detail. They understand and wished to proceed. FINDINGS: The colon was quite markedly dilated, though less so than previously from a clinical standpoint. A subtotal colectomy was performed dividing the terminal ileum flushed with the cecum and anastomosing the ileum in a side-to-end configuration to a somewhat dilated mid rectum. The colon once excised showed inflammatory change, but no sign of neoplasm or dominant diverticular issues. Given the inflammatory findings of the rectal mucosa, a diverting though improved compared to the colonoscopic evaluation. A protective loop ileostomy was deemed advisable and was performed. Additionally, given the inflammatory changes and the hazards to anastomosis, an omental pedicle graft was also applied. The central venous catheter was placed anticipating possible postoperative TPN and need for reliable venous access. DESCRIPTION OF PROCEDURE: The patient was brought to the operating room and given a general endotracheal anesthetic. Oral antibiotic preparation was able to be undertaken. Mechanical bowel prep not specifically done on this occasion and preoperative cefoxitin intravenously administered given. With the patient in mild Trendelenburg position, arms at the side, the head was turned Electronically Signed By: HARISH MARTINEZ MD 06/28/21 1252 PATIENT NAME: KATTY GUZMAN OPERATIVE REPORT DATE OF : 59 REPORT #: [id number] PHYSICIAN: HARISH MARTINEZ MD PCP: MARGIE BURNETTE DO REPORT IS CONFIDENTIAL AND NOT TO BE RELEASED WITHOUT AUTHORIZATION [address] [address] Signed to the left. The neck was prepared with a chlorhexidine solution and draped sterilely. Access to the right internal jugular vein was easily undertaken under direct puncture showing dark nonpulsatile blood. A flexible J-wire was passed down the needle. The site was incised with an #11 blade and dilated with enclosed blue dilator from the Arrow blue tip triple-lumen catheter kit. The previously inspected and irrigated yellow blue tip Arrow triple-lumen catheter was passed over the wire. The wire was removed and aspiration on the distal port showed dark nonpulsatile blood. The Clave cap was applied and the catheter easily flushed. The central venous catheter was withdrawn a few cm. The enclosed white collar applied and secured to the skin with the enclosed silk suture. Similarly, the other portion of the catheter was secured. An anti-infective disk was applied as was an op-site dressing. Plans were then made for major operation of the abdomen. The patient was taken out of Trendelenburg position and the abdomen was prepared with a chlorhexidine solution and draped sterilely. A midline incision was made extending above the umbilicus inferiorly trying to maintain a minimal incision if possible. Upon entry of the abdomen, there was no sign of ascites or carcinomatosis, but certainly dilated colonic loops. The small bowel did not appear to be dilated or inflamed particularly. Multiple areas of inflammation of the colon were noted. There was no creeping fat on the small bowel or elsewhere. A Bookwalter retractor was affixed to the table and the small bowel initially packed to the right side of the abdomen using laparotomy towels. The colon while dilated, did not seem to have any palpable mass nor any stricture or neoplasm. Mobilization of the left colon was undertaken though it was completely nonfixed on the left and right sides and of course a transverse colon as normal. The white line of Toldt was incised in the mesentery to the midline. The rectum was quite dilated as well more so than average for certain. The area of rectum was designated and the proximal to mid rectum secured with a suture to demarcate the distal plan of resection. The splenic flexure was mobilized using blunt electrocautery dissection and as was the omentum freed from the transverse mesocolon. The hepatic flexure was then freed with blunt electrocautery dissection and ultimately, the right colon completely freed to the midline as well. There appeared to be a surgical absence of the appendix. The mesentery was incised beginning at the rectosigmoid and sequential application of hemostats undertaken, ligating the vascular pedicles with 0 silk ties. This was taken completely around the colon ultimately freeing the colon quite thoroughly. A ALONSO stapling device was used to Electronically Signed By: HARISH MARTINEZ MD 06/28/21 1252 PATIENT NAME: KATTY GUZMAN OPERATIVE REPORT DATE OF : 59 REPORT #: [id number] PHYSICIAN: HARISH MARTINEZ MD PCP: MARGIE BURNETTE DO REPORT IS CONFIDENTIAL AND NOT TO BE RELEASED WITHOUT AUTHORIZATION [facility] [address], [place] [address] Signed transect the terminal ileum, flushed with the cecum. The anti-mesenteric fat pad of [facility] was normal and easily designating with clarity of the terminal ileum. The colon was then reflected inferiorly off the table. A ALONSO stapling device was used to transect the bulky upper to mid rectum nearly at the level of the peritoneal reflection. The specimen was then passed off the table after photograph was taken showing an enormously elongated colon no doubt from chronic pseudo-obstruction. It was opened on the back table and found to have no sign of neoplasm. The small bowel was packed in the upper central part of the abdomen and the ileum freed from its peritoneal attachments to the retroperitoneum. He was easily brought in contact with the rectal stump. A [id number] ileoproctostomy was then fashioned in a 2-layer technique of interrupted 3-0 silk suture for the serosal layer and interrupted 3-0 Vicryl for the mucosal layer. Opening of the rectum did show [id number] inflammation for which a diverting loop ileostomy was deemed quite indicated. Approximately 20 to 30 cm proximal to the ileal anastomosis, a loop of ileum was designated with a suture. This loop was brought out through an ostomy site fashioned by excising a disk of skin and forming a cruciate incision in the rectus abdominis on the right side, well away from the costal margin, but equally well away from the anterior superior iliac spine. The loop of ileum was delivered outside the abdominal wall with gentle traction using a Bob clamp designating the proximal distal segments for plan for maturation of the ileostomy. Irrigation was undertaken throughout the abdominal cavity. Given the inflammatory nature of the colon and the rectum itself, an omental pedicle graft was fashioned maintaining a good blood supply to it and taking it from the left side down to and surrounding the ileocolic anastomosis. This was secured with interrupted 2-0 silk sutures. The remaining omental pedicle was used to cover the abdominal viscera for closure. Through a left-sided stab incision, a 7-mm flat Marino drain was insinuated into the pelvis, so as to avoid the pelvic fluid collection. Secured the skin with a nylon suture and attached to bulb suction. The remaining intra-abdominal inspection showed no sign of bleeding or other problems. Plans were made for closure. The midline fascia was reapproximated with running bidirectional #1 PDS suture. Subcutaneous tissue was irrigated and the skin closed with a running subcuticular 3-0 Vicryl. Attention was then turned towards maturation of the ileostomy. Proximal and distal segments of the loop of ileum brought out through the ostomy site Electronically Signed By: HARISH MARTINEZ MD 06/28/21 1252 PATIENT NAME: KATTY GUZMAN OPERATIVE REPORT DATE OF : 59 REPORT #: [id number] PHYSICIAN: HARISH MARTINEZ MD PCP: MARGIE BURNETTE DO REPORT IS CONFIDENTIAL AND NOT TO BE RELEASED WITHOUT AUTHORIZATION [address] [place], [place] [address] Signed were partially secured to the dermal layer and a transverse incision made with electrocautery in the ileum. A nipple-like configuration of the proximal limb was undertaken to allow for good protection into an ostomy appliance. The distal segment while patent was secured and less prominent. An ostomy appliance was then applied. The patient was ultimately extubated and taken to recovery room in good condition, having suffered no complication. Of special note, preoperative Tap blocks were placed including subcostal and axillary approaches to provide for postoperative analgesia. The operation was rather prolonged, complicated, and difficult lasting greater than 6 hours in total. MD NOE Tsai/MODL /[id number] cc: MD Do Yates MD Brian Piteo, MD Copies: ACOSTA ALFONSO MD, CYNTHIA MD PITEO, BRIAN DO ~ Electronically Signed By: HARISH MARTINEZ MD 06/28/21 1252 PATIENT NAME: KATTY GUZMAN OPERATIVE REPORT DATE OF : 59 REPORT #: [id number] PHYSICIAN: HARISH MARTINEZ MD PCP: MARGIE BURNETTE DO REPORT IS CONFIDENTIAL AND NOT TO BE RELEASED WITHOUT AUTHORIZATION
--- NOTE | 2021-06-28 13:36 | NUR ---
CARLOYN MULLEN CURRENTLY EMPTYING PT'S DRAIN. PT SITTING IN CHAIR. IN ROOM . CALL LIGHT IN REACH, NO FURTHER NEEDS AT THIS TIME.
--- NOTE | 2021-06-28 14:00 | NUR ---
PT. IS UPRIGHT IN THE CHAIR. HE REFUSES REPOSITIONING AT THIS TIME. EATING AND DRINKING WELL. HE C/O MILD PAIN IN LOWER BACK, DESSCRIBED TOLERABLE. NOHEMI PATENT AND EMPTIED OF 100ML OF SS FLUID. OSTOMY HERNANDEZ INTACT AND EMPTIED OF BROWN CHUNKY AND LIQUID STOOL. HE IS ON 2L NC AND O2 SAT. IS 95%. MIDLINE DRESSING REMAINS UNCHANGED. BOWEL TONES HYPERACTIVE. PT. DENIES FURTHER NEEDS AT THIS TIME. NEARBY.
--- NOTE | 2021-06-28 14:51 | NUR ---
PT REQUESTS TO MOVE TO THE BED. 3 STAFF ASSISTED WITH MOVING VIA COLLINS LIFT. TOLERATED WELL. NOHEMI AND OSTOMY EMPTIED. HE DENIES PAIN AT THIS TIME. LEFT RESTING WITH SQL ARCHITECT AND IN THE ROOM
--- NOTE | 2021-06-28 14:57 | NUR ---
RN PAZ AND SUDEEP ASSISTED THIS FLEXOGRAPHIC PRINTING MACHINIST IN COLLINS LIFTING PT BACK TO BED. CALL LIGHT WTI[place]ILI LOCO, NO FURTHER NEEDS AT THIS TIME.
--- NOTE | 2021-06-28 18:05 | NUR ---
PT SITTING UP IN BED WATCHING TV WITH . SAYS PT HAS BEEN "A LITTLE OUT OF IT TODAY." RN PAZ NOTIFIED OF LOW INTAKE AND OUTPUT. CALL LIGHT IN REACH, NO FURTHER NEEDS AT THIS TIME.
--- NOTE | 2021-06-28 19:42 | NUR ---
REPORT RECEIVED FROM DAY SHIFT RN. PT LYING IN BED WATCHING TV. AT BED SIDE. DENIES NEEDS AT THIS TIME. WHITE BOARD UPDATED. CALL LIGHT IN REACH.
--- NOTE | 2021-06-28 21:15 | NUR ---
EVENING ASSESSMENT COMPLETE. SCHEDULED MEDS ADMINISTERED PER EMAR. PRN ADMINISTERED FOR ABD PAIN. PT DENIES NAUSEA. ABD SOFT AND NON DISTENDED. BOWEL TONES ACTIVE. MIDLINE DRESSING INTACT WITH OLD DRAINAGE. OSTOMY WITH 200 ML BROWN LIQUID OUTPUT. NOHEMI WITH SEROSANG DRAINAGE. PICKETT PATENT WITH CONCENTRATED YELLOW URINE. ENCOURAGED ORAL INTAKE. 3PA WITH COLLINS TO REPOSITION IN BED WITH PILLOWS. SCD'S IN PLACE. IN ROOM. EXPRESSED CONCERN PT HAS INCREASED CONFUSION THIS EVENING RELATED TO "DEHYDRATION". PT ALERT AND TALKATIVE DURING CARES. ORIENTED TO SELF. WILL CONTINUE TO ASSESS. PT DENIES FURTHER NEEDS. CALL LIGHT IN REACH.
--- NOTE | 2021-06-29 00:34 | NUR ---
PT REPOSITIONED IN BED WITH PILLOWS AND 2PA. NOHEMI EMPTIED OF 75 ML SEROSANG DRAINAGE. PT AGREES HE IS COMFORTABLE. CALL LIGHT WITHIN REACH.
--- NOTE | 2021-06-29 03:04 | NUR ---
PT RESTING IN BED WITH EYES CLOSED. RESPIRATIONS EVEN. SpO2 92% ON 1L/NC. HR 50'S. NOHEMI WITH 30 ML SEROSANG DRAINAGE.
--- NOTE | 2021-06-29 06:36 | NUR ---
VS AND I&O COMPLETE. SCHEDULED MEDS ADMINISTERED PER EMAR. REPOSITIONED IN BED WITH PILLOWS. IN ROOM. NO FURTHER NEEDS. CALL LIGHT IN REACH.
--- NOTE | 2021-06-29 07:31 | NUR ---
BEDSIDE REPORT FROM JD LEON, PT RESTING IN BED, EYES CLOSED, POSTURE AND FACIAL EXPRESSION RELAXED. NO DISTRESS NOTED, PT'S BEBE JUNIORP ON COUCH IN ROOM, SHE EXPRESSED CONCERN FOR HIS DISCHARGE TO [facility] SOON.
--- NOTE | 2021-06-29 08:05 | NUR ---
PATIENT GIVEN TYLENOL FOR 10/10 LEFT FOOT NEUROPATHY PAIN. SCD'S TURNED OFF FOR NOW, ICE PACK TO LEFT FOOT PER PATIENT.
--- NOTE | 2021-06-29 09:00 | NUR ---
PER BERHAEN AT T STAFF ABLE TO TAKE PATIENT BACK TODAY IF DISCHARGED. WILL NOTIFY BERHANE WHEN DR. MARTINEZ HAS EVALUATED PATIENT.
--- NOTE | 2021-06-29 09:12 | NUR ---
PT REPORTS PAIN 8/10 AT HIS FEET, HE RPEORTS BURNING, HE HAS NEUROPATHY AT BASELINE, TYLENOL/MOTRIN AND AM MED PASS COMPLETE, PT LEGS ELEVATED ON TWO PILLOWS TO HELP WITH PAIN.
--- NOTE | 2021-06-29 09:52 | NUR ---
PATIENT IN BED WATCHING TV. IN ROOM. VITALS AND I&O'S CHARTED. WARM WASH CLOTH GIVEN. CALL LIGHT IN REACH. NO FURTHER NEEDS AT THIS TIME.
--- NOTE | 2021-06-29 11:31 | NUR ---
PT ASSISTED TO SIT THEN STAND AT BEDSIDE WITH OCCUPATIONAL THERAPY, THIS RN AND ROSA Doshi CNA. PT REPORTED INCREASE IN PAIN WITH ACTIVITY, THAT RESOLVED WITH REST, B/P CHECKED WHILE SITTING PT REPORTED FEELING DIZZY, IT WAS UNREMARKABLE CHANGED FROM PREVIOUS V/S. HE GAVE HIGH FIVE AND KNUCKLE BUMP AFTER COMPLETION TO OCCUPATIONAL THERAPIST. PT NOW REPORTS HIS LEGS ARE NUMB HE REPORTS NO PAIN AT FEET AND LEGS AT THIS TIME. SITTING UP ON COUCH DURING THERAPY.
--- NOTE | 2021-06-29 11:43 | NUR ---
I was able to meet with Ugo and his today. His did most of the talking, Mr. Wakefield does have some dementia. Mrs. Wakefield does say that she is extremely happy wiht the care her has received here at the [facility]. Mr. Wakefield also said "Your staff is very professional and friendly, you have quite a team. I don't feel like there is anyone in your group that does not belong." He also added, "you can turn your back and trust to know that they are doing the correct job. You have a super team."
[2021-06-29] MEDS ORDERED: ACETAMINOPHEN500 MG PO (15:04)
[2021-06-29] MEDS ORDERED: PANTOPRAZOLE SO40 MG PO (15:05)
[2021-06-29] MEDS ORDERED: PREDNISONE20 MG PO (15:07)
--- NOTE | 2021-06-29 15:08 | NUR ---
HAS ROUNDED, PLAN IS TO DISCHARGE TODAY BACK TO [facility].
--- NOTE | 2021-06-29 15:50 | NUR ---
IJ REMOVED NO ISSUES, TIP INTACT, PRESSURE HELD 15MIN, NO BLEEDING NOTED, OCCLUSIVE DRESSING PLACED. AT BEDSIDE.
--- NOTE | 2021-06-29 16:14 | NUR ---
REPORT CALLED TO SUZY LEON AT [facility] AT THIS TIME. ALL QUESTIONS ANSWERED. AVAILABLE IF ANY FURTHER QUESTIONS ONCE HE ARRIVES, TRANSPORT IS HERE TO TRANSPORT NOW NON EMERGENT TRANSPORT.
--- NOTE | 2021-07-01 13:37 | DS ---
[facility] [address], [place] [address] Signed ADMISSION DATE: 06/14/2021 DISCHARGE DATE: 06/29/2021 REASON FOR ADMISSION: This markedly debilitated 66-year-old white man presented to the emergency room, was evaluated by Dr. Ramos with profound abdominal distention. He had recently been residing in [facility]. He has dementia and a number of other medical problems including cauda equina syndrome with a nerve stimulator to his sacral area as well as long-standing chronic constipation. He was admitted for further evaluation and care. The patient was thought to be distended by his , not tolerating oral intake well. He was taken to the emergency room and evaluated by Dr. Ramos. Clinical examination showed a nontoxic white man, well compensated regarding his dementia. His POLST form described him to have "comfort measures only" though this was probably not his overall intention nor his 's as became apparent during the course of his hospitalization. Notably, he was transferred to the hospital by paramedics with increasing abdominal pain, swelling, and so on and evaluation showed him to have marked distention with a normal white count of 5.3 and hematocrit of 46.6. Electrolytes normal including a calcium 8.7. A CT scan of the abdomen performed showed massive distention of the colon up to 11 cm in some area, but no findings of perforation or ischemia. The patient has had a deep venous thrombosis in the past for which he was on Eliquis. He has also had spinal surgery and subsequent cauda equina syndrome. 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 He additionally has had bilateral hip replacement. No prior abdominal surgery per Se, but also hypotension, depression, and as mentioned variable degrees of dementia. PERTINENT PHYSICAL EXAMINATION: GENERAL: Showed a tall white man with a calm and deliberate demeanor. VITAL SIGNS: Temperature is 97.8, pulse 86, respirations 16, blood pressure 135/100, and pulse oximetry 95% on room air. NECK: Trachea is midline. CHEST: Clear. Pulses regular. There is no EKG evidence of atrial fibrillation. ABDOMEN: Diffusely enlarged without focal tenderness. Only minimal tenderness is noted otherwise. 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 He had no electrolyte abnormalities to contribute to this. It sounds as though his presentation was that of a crescendo of increasing difficulty with Electronically Signed By: HARISH MARTINEZ MD 07/01/21 1337 PATIENT NAME: KATTY GUZMAN DISCHARGE SUMMARY DATE OF : 59 REPORT #: [id number] PHYSICIAN: HARISH MARTINEZ MD PCP: MARGIE WAGGONER DO REPORT IS CONFIDENTIAL AND NOT TO BE RELEASED WITHOUT AUTHORIZATION [facility] [address] [place] [id number] Signed bowel function for which numerous cathartics and so forth had been applied. The patient was admitted given a nasogastric tube, which did allow for decompression a fair amount of gastric fluid. Followup KUB showed marked distention of colonic bowel segments. Consultation was undertaken with Dr. Alfonso, who confirmed his underlying problems of neurogenic bladder and neurogenic bowel secondary to cauda equina syndrome beginning in 2010, considered a complication of back surgery with hematoma. He is also considered to have vascular dementia in 2018, and episode of delirium after hip surgery and a neurogenic bladder for which he is generally self catheterizes, but recently has been with an indwelling Garcia catheter. He does have chronic hypoxemic respiratory failure with hypoxia and is on 2 L of supplemental oxygen at time of presentation. As he did not have much improvement with enemas that were administered initially as well as nasogastric tube decompression, he did undergo decompressive colonoscopy by me on June 15, 2021. This did improve his distention. Subsequent administration of magnesium citrate resulted in a rather large bowel movement, but relatively soon thereafter prompt recurrence of his abdominal distention. He underwent another episode of colonoscopy with placement of a rectal drain on June 20, 2021, which did allow from some decompression. It is noted that he had findings of moderately inflamed colonic mucosa for which biopsies ultimately confirmed nonspecific "colitis." On that basis, he is maintained with hydrocortisone 100 mg IV q.8 hours. It became clear that his colonic function was not forthcoming despite efforts doing good motility including IV erythromycin, IV Reglan, decompression with the colonoscope, and so on. He had no other intraabdominal problem to suggest focus of infection or ileus. It became clear ultimately that the operative intervention would be likely as recurrent distention of his colon despite the aforementioned factors was recurring and persistent. On June 25, 2021, he underwent subtotal colectomy with ileoproctostomy in a side-to-end configuration. Additionally, a protective diverting loop ileostomy was undertaken on the right side of the abdomen. The anastomosis was configured in large part due to the ongoing inflammation of the rectal remnant for which the anastomotic connection could not be relied upon most certainly at this point. A pelvic drain was placed as well. In addition, an omental pedicle graft was made to be associated with the area of the anastomosis. He was monitored thereafter and had prompt recovery of bowel function through his loop ileostomy. The pelvic drain was removed on the day of discharge, draining only serosanguineous fluid. The patient postoperatively did have a fair amount of hypokalemia, which was repleted aggressively less so for hypomagnesemia. Electronically Signed By: HARISH MARTINEZ MD 07/01/21 1337 PATIENT NAME: KATTY GUZMAN DISCHARGE SUMMARY DATE OF : 59 REPORT #: [id number] PHYSICIAN: HARISH MARTINEZ MD PCP: MARGIE WAGGONER DO REPORT IS CONFIDENTIAL AND NOT TO BE RELEASED WITHOUT AUTHORIZATION [facility] [address], [place] [address] Signed He was advanced in his diet, ultimately tolerating a regular diet with minimal incisional pain well managed by oral analgesics. Although, a central line had been placed at time of his major operation, he never required TPN and he promptly returned to a good oral diet postoperatively. He had far less abdominal distention following colectomy as might be expected. He had good ileostomy output and good adherence of the ostomy appliance to the skin. 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 The patient will be returning to [facility] for ongoing care. We are hopeful and optimistic that he may one day return to his usual home as would be much desired by the patient and his (provided she can manage him with his debilities). DISCHARGE MEDICATIONS: 1. Include Tylenol 1000 mg p.o. q.6 hours as needed for pain #60. 2. Pantoprazole 40 mg p.o. daily #90. 3. Prednisone 20 mg p.o. daily for 2 weeks, tapering to 10 mg p.o. daily #60, refill 0. He will continue with his usual medications of, 1. Amlodipine/olmesartan 10 one tablet p.o. daily for hypertension. 2. Donepezil 5 mg p.o. at bedtime for dementia. 3. Venlafaxine 150 mg caps q.24 hours for depression. 4. Proscar 5 mg p.o. q.a.m. for bladder dysfunction. 5. Tamsulosin (Flomax) 0.4 mg p.o. at bedtime for urinary retention. 6. Nortriptyline 25 mg p.o. daily for depression. 7. Depakote 125 mg p.o. b.i.d. for convulsions/depression. 8. Apixaban (Eliquis) 5 mg p.o. b.i.d. for anticoagulation related to prior thrombus and underlying hypercoagulable state. 9. Lyrica (pregabalin) 50 mg p.o. t.i.d. for neuropathy. 10. Albuterol inhaler one puff q.4 hours as needed for wheezing. 11. Simethicone 80 mg two as needed for gas. 12. Tramadol (Ultram) 50 mg p.o. q.12 as needed for pain. 13. Vitamin D2 25 mcg p.o. daily. 14. Vitamin B12 1000 mcg p.o. daily. 15. Synthroid 125 mcg p.o. daily. 16. Spiriva inhaler one inhalation daily for COPD. 17. Symbicort inhaler 2 puffs b.i.d. for COPD. He will discontinue medications of lactobacillus, potassium chloride, hydrochlorothiazide, lower dose Tylenol, Dulcolax, sodium phosphate enema, magnesium hydroxide, and MiraLAX. Electronically Signed By: HARISH MARTINEZ MD 07/01/21 1337 PATIENT NAME: KATTY GUZMAN DISCHARGE SUMMARY DATE OF : 59 REPORT #: [id number] PHYSICIAN: HARISH MARTINEZ MD PCP: MARGIE WAGGONER DO REPORT IS CONFIDENTIAL AND NOT TO BE RELEASED WITHOUT AUTHORIZATION [facility] [address] [facility] [place] [address] Signed FOLLOWUP PLAN: I will see him in approximately 4 weeks. He has no restrictions to oral intake. There is a goal and expectation that one day the loop ileostomy will be taken down when his ileorectal anastomosis is healed and the patient is doing well. DISCHARGE DIAGNOSES: 1. 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 2. History of dementia. 3. Cauda equina syndrome. 4. Stated abnormality of protein S deficiency with history of lower extremity blood clot. 5. Chronic use of apixaban (Eliquis) 5 mg p.o. b.i.d. 6. Hypothyroidism. 7. Bladder dysfunction and cauda equina syndrome. 8. Chronic obstructive pulmonary disease. 9. Significant dementia. Harish Martinez MD /RENUKAL /[id number] cc: MD Nolan Lock MD Chloe K Norris, PA-C Lohith Veerappa Reddy, MD Copies: OLGA VELAZQUEZ MD, BRIAN DO NORRIS, CHLOE K PA-C Electronically Signed By: HARISH MARTINEZ MD 07/01/21 1337 PATIENT NAME: KATTY GUZMAN DISCHARGE SUMMARY DATE OF : 59 REPORT #: [id number] PHYSICIAN: HARISH MARTINEZ MD PCP: MARGIE WAGGONER DO REPORT IS CONFIDENTIAL AND NOT TO BE RELEASED WITHOUT AUTHORIZATION [facility] [address] [place] [address] Signed ACOSTA ALFONSO MD ~ Electronically Signed By: HARISH MARTINEZ MD 07/01/21 1337 PATIENT NAME: KATTY GUZMAN DISCHARGE SUMMARY DATE OF : 59 REPORT #: [id number] PHYSICIAN: HARISH MARTINEZ MD PCP: MARGIE WAGGONER DO REPORT IS CONFIDENTIAL AND NOT TO BE RELEASED WITHOUT AUTHORIZATION
== END 2021-06-29 18:00 | disposition home or self-care (01) | DRG 329 ==
LOC: ED 13:56 → MS 18:57
PROVIDERS: ADMIT Surgery; ATTEND Surgery
PROC: 0D9E8ZZ Drainage of Large Intestine, Via Natural or Artificial Opening Endoscopic (ICD-10-PCS; principal; 2021-06-15 14:45)
PROC: 0D9E80Z Drainage of Large Intestine with Drainage Device, Via Natural or Artificial Opening Endoscopic (ICD-10-PCS; 2021-06-20)
PROC: 0DTK0ZZ Resection of Ascending Colon, Open Approach (ICD-10-PCS; 2021-06-24)
PROC: 0DTL0ZZ Resection of Transverse Colon, Open Approach (ICD-10-PCS; 2021-06-24)
PROC: 0DTM0ZZ Resection of Descending Colon, Open Approach (ICD-10-PCS; 2021-06-24)
PROC: 0DBP0ZZ Excision of Rectum, Open Approach (ICD-10-PCS; 2021-06-24)
PROC: 0D1B0Z4 Bypass Ileum to Cutaneous, Open Approach (ICD-10-PCS; 2021-06-24)
PROC: 0DBE8ZX Excision of Large Intestine, Via Natural or Artificial Opening Endoscopic, Diagnostic (ICD-10-PCS; 2021-06-24 07:30)
DX: K59.81 Ogilvie syndrome (principal); G93.41 Metabolic encephalopathy; J96.11 Chronic respiratory failure with hypoxia; D68.51 Activated protein C resistance; Z20.822 Contact with and (suspected) exposure to COVID-19; K52.9 Noninfective gastroenteritis and colitis, unspecified; K59.09 Other constipation; N31.9 Neuromuscular dysfunction of bladder, unspecified; E87.6 Hypokalemia; E83.42 Hypomagnesemia; K59.2 Neurogenic bowel, not elsewhere classified; J44.9 Chronic obstructive pulmonary disease, unspecified; I10 Essential (primary) hypertension; F32.9 Major depressive disorder, single episode, unspecified; E03.9 Hypothyroidism, unspecified; F01.50 Vascular dementia, unspecified severity, without behavioral disturbance, psychotic disturbance, mood disturbance, and anxiety; N40.0 Benign prostatic hyperplasia without lower urinary tract symptoms; Z99.81 Dependence on supplemental oxygen; G89.4 Chronic pain syndrome; Z79.01 Long term (current) use of anticoagulants; Z96.643 Presence of artificial hip joint, bilateral; Z79.899 Other long term (current) drug therapy; Z86.718 Personal history of other venous thrombosis and embolism; Z98.890 Other specified postprocedural states
CPT/HCPCS: 00790; 64488; 71045; 74018; 74177; 76942; 80048; 80053; 81001; 83605; 83735; 84100; 85007; 85025; 85651; 88305; 88307; 94640; 94760; 94762; 96374; 96375; 97110; 97162; 97163; 97165; 97530; 97535; 99285-25; A9270; C9803; J0131; J0330; J0690; J0694; J1100; J1170; J1644; J1650; J1720; J1885; J2001; J2250; J2270; J2405; J2704; J2765; J2795; J3475; J3480; J7060; J7121; J7512; Q9967; U0003

== ENCOUNTER 2023-02-07 12:42 | Day surgery (SDC) | payer MEDICARE, OTHER ==
[~2023-02-07] VITALS: Ht 198.1 cm; Wt 152.3 kg
[~2023-02-07 12:42] MED LIST: ACETAMINOPHEN500 MG PO; ACIDOPHILUS1 EACH PO; AMLODIPINE-OLM1 EAC1 PO; B-121000 MC2 PO; CLEARLAX119 GM PO; CYANOCOBAL1000 MCG/M IM; CYMBALTA30 MG PO; D3-501250 MCG PO; DEPAKOTE125 MG PO; DONEPEZIL HCL5 M1 PO; DULCOLAX STOOL100 M1 PO; DULCOLAX10 MG PR; EFFEXOR XR150 MG PO; ELIQUIS5 MG PO; FLEET ENEMA133 ML PR; FLOMAX0.4 MG PO; GAS RELIEF80 MG PO; HYDROCHLOROTH12.5 M1 PO; HYDROCHLOROTH12.5 MG PO; K-TAB ER20 MEQ PO; LASIX20 MG PO; LEVOTHYROXINE125 MC1 PO; LYRICA50 MG PO; MILK OF MA400 MG/5 M PO; NORTRIPTYLINE H25 MG PO; NORVASC10 MG PO; PAIN RELIEF325 MG PO; PAIN RELIEF650 MG PO; PANTOPRAZOLE SO40 MG PO; POLYETHYLENE GL17 GM PO; PREDNISONE20 MG PO; PROSCAR5 MG PO; SIMETHICONE80 MG PO; SPIRIVA RESPIMAT4 GM INH; SPIRIVA18 MCG INH; SYMBICORT 16010.2 GM INH; SYNTHROID125 MCG PO; ULTRAM50 MG PO; VENTOLIN HFA18 GM INH; VITAMIN D325 MCG PO
[2023-02-07 13:03] VITALS: BP 136/79
--- NOTE | 2023-02-07 14:35 | NUR ---
02/07/23 1435 Shelly Torres 1420- PT ALERT AND ORIENTED HE ARRIVED TO PACU, LR INFUSING. O2 AT 2L TO MAINTAIN LOW 90'S. ILEOSTOMY BAG FULL OF AIR, AIR RELEASED AT THIS TIME. PT DENIES PAIN OR NAUSEA. CONTINUR TO MONITOR. 1430- PT REQUESTS FLUIDS, APPLE JUICE PROVIDED, TOLERATED WELL.
[2023-02-07 15:01] VITALS: BP 124/86
--- NOTE | 2023-02-08 13:11 | CONS ---
[facility] [address], [place] [address] Signed DATE OF CONSULTATION: 02/07/2023 The patient was additionally noted to have bilateral inflammation of his sclera which are red. He does not have significant eye pain and no visual loss so far as could be told. He has significant underlying dementia. His primary provider is Dr. Margie Burnette in [place], [place] which may be problematic for evaluation. On that basis, we will prescribe gentamicin 0.3% ophthalmic solution two drops in each eye twice a day, dispense one bottle. If this has not improved, he should see his primary care physician or trim mounter or chief clerk shelter. Notably, he has no evidence of purulence currently and this may represent simply a "pinkeye " phenomenon (viral conjunctivitis). MD NOE Tsai/RENUKAL /[id number] cc: Margie Burnette [facility] Copies: ~ Electronically Signed By: HARISH MARTINEZ MD 02/08/23 1311 PATIENT NAME: KATTY GUZMAN CONSULTATION DATE OF : 59 REPORT #: [id number] PHYSICIAN: HARISH MARTINEZ MD PCP: MARGIE BURNETTE DO REPORT IS CONFIDENTIAL AND NOT TO BE RELEASED WITHOUT AUTHORIZATION
--- NOTE | 2023-02-08 13:11 | OR ---
[facility] [address], [place] [address] Signed DATE OF OPERATION: 02/07/2023 SURGEON: Harish Martinez MD PREOPERATIVE DIAGNOSIS: History of subtotal colectomy with side-to-end ileoproctostomy and proximal diverting loop ileostomy (related to intractable pseudo-obstruction and history of possible ulcerative colitis). POSTOPERATIVE DIAGNOSIS: Widely patent ileoproctostomy; normal-appearing ileum, rectal inflammation, uncertain as to etiology (diversion proctitis versus intrinsic colitis. PROCEDURE: Flexible sigmoidoscopy and ileoscopy with biopsy. ANESTHESIA: Intravenous sedation fentanyl 100 mcg, Versed 2 mg. INDICATIONS: This 68-year-old white man is a patient of Margie Burnette DO. He is known to me from the past having undergone subtotal colectomy with side-to-end ileoproctostomy with proximal loop ileostomy on June 24, 2021 for persistent colonic pseudo-obstruction and history of colitis, not otherwise characterized. The patient has profound short-term memory loss (dementia) and although generally interactive, cannot remember one minute to the next what has been said or transpired. He has well cared for by his . He has been in the jail setting at some point, particularly following initial operation and now lives at home once again with his . His has inquired about takedown of the ileostomy. It is notable that the pathology of his original resected specimen showed mucosa with multifocal ulceration and associated severe active colitis. He has not been on any medication related to his colitis since the operation and does not have persistent rectal bleeding or diarrhea, though it is admitted that he does have proximal diversion with a loop ileostomy. Episodic mucoid discharge is noted, but no blood or other signs of actual colitis. Consideration has been made by his for evangelical of his gastrointestinal tract (takedown of the ileostomy specifically). I have recommended consideration of it not Electronically Signed By: HARISH MARTINEZ MD 02/08/23 1311 PATIENT NAME: KATTY GUZMAN OPERATIVE REPORT DATE OF : 59 REPORT #: [id number] PHYSICIAN: HARISH MARTINEZ MD PCP: MARGIE BURNETTE DO REPORT IS CONFIDENTIAL AND NOT TO BE RELEASED WITHOUT AUTHORIZATION [facility] [address], [place] [address] Signed only after more firmly establishing the tissue related to the rectum that remains. Active colitis that present would need treatment before any consideration of takedown of the diverting loop ileostomy. Specifically, the patient does require a fair amount of oversight and care and consideration must be made whether an ileoscopy may be easier to care for than the possibility of persistent incontinence or other issues if ileostomy should be taken down. He has had several cancellations of this planned intervention, but is going for with it today. His prep was included a Fleet's enema. Notably, he remains on his Eliquis. FINDINGS: The prep of sorts was good. He showed some diffuse inflammation of the rectum, though it could not be distinguished as ulcerative colitis or other types of colitis and may represent simply diversion colitis. Notably, the proximal limb of the ileum did allow for passage of mucoid bilious fluid into the rectum and therefore, nutritive benefit is still maintained of the retained rectum. The anastomosis was widely patent. Biopsies were taken of the ileum and the rectum. DESCRIPTION OF PROCEDURE: The patient was brought to the endoscopy suite and placed in lateral decubitus position, given intravenous sedation to the point of slurred speech and nystagmus with propofol infusional sedation and full cardiopulmonary monitoring. Digital rectal examination was slightly uncomfortable in part related to a minimally stenotic and anal canal, possibly related to diversion issues. An Olympus video colonoscope was passed in the rectum. Immediately noted was rather diffuse inflammatory change, though not typical of ulcerative colitis proper. This may represent diversion colitis. The ileoproctostomy and mucosa were quite normal. Ultimately, the proximal ileal loop was intubated and showed lymphoid aggregates as would be expected. Biopsies were taken of the ileal limb. Biopsies were additionally taken off the rectal mucosa to assess for underlying ulcerative colitis or other inflammatory bowel disease findings. Retroflexed view was undertaken and was reasonably normal. Scope was removed. The patient was taken to the recovery room in good condition. CONCLUDING DIAGNOSIS: Await biopsy results to better characterize the status of his rectum. Diversion colitis alone would improve with evangelical of enteric flow. However, he does have some amount of enteric flow despite the proximal loop diversion ileostomy and therefore significant inflammation may be more indicative of ulcerative colitis or other comorbidities, which may hamper one's enthusiasm for takedown of the ileostomy proximally. Electronically Signed By: HARISH MARTINEZ MD 02/08/23 1311 PATIENT NAME: KATTY GUZMAN OPERATIVE REPORT DATE OF : 59 REPORT #: [id number] PHYSICIAN: HARISH MARTINEZ MD PCP: MARGIE BURNETTE DO REPORT IS CONFIDENTIAL AND NOT TO BE RELEASED WITHOUT AUTHORIZATION [address] [address] Signed Harish Martinez MD JM/MODL /[id number] cc: DO Corie Vasquez [place] Copies: ~ Electronically Signed By: HARISH MARTINEZ MD 02/08/23 1311 PATIENT NAME: KATTY GUZMAN FLORIAN OPERATIVE REPORT DATE OF : 59 REPORT #: [id number] PHYSICIAN: HARISH MARTINEZ MD PCP: MARGIE BURNETTE DO REPORT IS CONFIDENTIAL AND NOT TO BE RELEASED WITHOUT AUTHORIZATION
--- NOTE | 2023-02-08 18:07 | PATH ---
[facility] [address], [place] [address] Signed SPECIMEN(S): A RECTUM BIOPSY SPECIMEN(S): B TERMINAL ILEUM BIOPSY SPECIMEN SOURCE: A. RECTUM BIOPSY B. TERMINAL ILEUM BIOPSY CLINICAL HISTORY: Hx of colitis, total colectomy. Status post - subtotal colectomy, current ileoproctostamy with proximal loop ileostomy diversion, questionable hx ulcerative colitis. Assess for ulcerative colitis or diversion colitis. FINAL PATHOLOGIC DIAGNOSIS: A. Rectum biopsy: - Benign colonic mucosa with focal hyperplastic features. - Negative for significant pathologic inflammation. - Negative for significant active colitis. B. Terminal ileum: - Benign small bowel-type mucosa. - Negative for significant pathologic inflammation or dysplasia. JVR:[id number] MICROSCOPIC EXAMINATION: Histologic sections of all submitted blocks are examined by light microscopy. These findings, together with the gross examination, support the pathologic diagnosis. GROSS DESCRIPTION: A. The specimen, labeled and designated "Dettmer, rectum biopsy," is received in formalin and consists of three guerrero soft tissue fragments, ranging from 0.2-0.3 cm. Entirely submitted in (A1). B. The specimen, labeled and designated "Dettmer, terminal ileum biopsy," is received in formalin and consists of four guerrero soft tissue fragments, ranging from 0.1-0.3 cm. Entirely submitted in (B1). VB (under the direct supervision of a pathologist) The Gross Description was prepared using a voice recognition system. The report was reviewed for accuracy; however, sound-alike word errors, addition and/or deletions may occur. If there is any question about this report, please contact Client Services. PATIENT NAME: KATTY GUZMAN PATHOLOGY DATE OF : 59 REPORT #: [id number] PHYSICIAN: EDD LAGUNAS PCP: MARGIE WAGGONER DO REPORT IS CONFIDENTIAL AND NOT TO BE RELEASED WITHOUT AUTHORIZATION [facility] [address] [place], [place] [address] Signed PERFORMING LABORATORY: Technical component was performed by [facility], [address] [place] [address] (CLIA# [id number]). Professional interpretation was performed by [facility], [address] [place] [id number] (CLIA#: [id number]). Diagnostician: Bartolo Saldivar MD Pathologist Electronically Signed 02/08/2023 Copies: ~ PATIENT NAME: KATTY GUZMAN PATHOLOGY DATE OF : 59 REPORT #: [id number] PHYSICIAN: EDD LAGUNAS PCP: MARGIE WAGGONER DO REPORT IS CONFIDENTIAL AND NOT TO BE RELEASED WITHOUT AUTHORIZATION
== END 2023-02-07 15:12 | disposition home or self-care (01) ==
LOC: DS 12:42 → OPS 12:42
PROVIDERS: ATTEND Surgery
PROC: 0DBB8ZX Excision of Ileum, Via Natural or Artificial Opening Endoscopic, Diagnostic (ICD-10-PCS; 2023-02-07)
PROC: 0DBP8ZX Excision of Rectum, Via Natural or Artificial Opening Endoscopic, Diagnostic (ICD-10-PCS; principal; 2023-02-07 14:00)
DX: A08.8 Other specified intestinal infections (principal); F03.90 Unspecified dementia, unspecified severity, without behavioral disturbance, psychotic disturbance, mood disturbance, and anxiety; E66.9 Obesity, unspecified; Z68.38 Body mass index [BMI] 38.0-38.9, adult; Z87.19 Personal history of other diseases of the digestive system; Z90.49 Acquired absence of other specified parts of digestive tract
CPT/HCPCS: 99153; G0500; J2250; J3010